=== PATIENT | male | born 1955 | race Caucasian/White ===

== ENCOUNTER 2018-12-18 08:10 | Inpatient (IN) | payer BC, OTHER ==
[2018-12-14 13:00] LABS: Basophils # (auto) 0 uL; Basophils % (auto) 0.6 % (0.0-2.0); Eosinophils # (auto) 0.1 uL; Eosinophils % (auto) 2.6 % (0.0-7.0); Hematocrit 35.4 % (41.0-53.0); Hemoglobin 11.9 g/dL (13.5-17.5); Lymphocytes # (auto) 0.7 uL; Lymphocytes % (auto) 21.6 % (10.0-50.0); Mean Corpuscular Hemoglobin 29.5 pg (28.0-32.0); Mean Corpuscular Hgb Conc. 33.5 g/dL (32.0-36.0); Mean Corpuscular Volume 88.1 fL (80.0-100.0); Monocytes # (auto) 0.2 uL; Monocytes % (auto) 5.8 % (0.0-12.0); Neutrophils # (auto) 2.1 uL; Neutrophils % (auto) 69.4 % (37.0-80.0); Nucleated Red Blood Cells % 0.2 %; Platelet Count (auto) 177 10^3/uL (140-450); Red Blood Cells 4.01 10^6/uL (4.5-5.90)
[2018-12-14 13:04] LABS: Urine Bacteria NONE SEEN /hpf (None Seen); Urine Blood TRACE /uL (Negative); Urine Specific Gravity 1.015 (1.001-1.035); Urine WBC 1 /hpf (0 - 3)
[2018-12-14 13:18] LABS: Partial Thromboplastin Time 34.1 sec (23.78-33.04); Prothrombin Time 10.7 sec (9.27-12.13)
[2018-12-14 13:53] LABS: Albumin 3.5 g/dL (3.4-5.0); Calcium 8.7 mg/dL (8.5-10.1)
[2018-12-14 13:56] LABS: BUN/Creatinine Ratio 16.3; Bilirubin, Total 0.3 mg/dL (0.2-1.0)
[~2018-12-18] VITALS: Ht 170.2 cm; Wt 83.0 kg
[~2018-12-18 08:10] MED LIST: AMLO5TAB13 PO; FOLI1TAB6 PO; HYDR-4296 PO; LISI40TA PO; METH2.5T3 PO; METO-158 PO
[2018-12-18] MEDS ORDERED: ceFAZolin 1GM/50ML 50 ML IV ONE ×2 (08:46→10:03)
[2018-12-18] MEDS ORDERED: MIDAZOLAM HCL 1MG/1ML-2 ML VIAL ONE ×3 (09:30→10:33)
[2018-12-18] MEDS ORDERED: LIDOCAINE 1% INJ PF 5ML AMP ONE (09:31)
[2018-12-18] MEDS ORDERED: LIDOCAINE W/ EPINEPHRINE 1% 20ML VIAL ONE (09:31)
[2018-12-18] MEDS ORDERED: ROPIVACAINE 0.5% (5MG/ML) 20ML AMPULE IJ ONE (09:31)
[2018-12-18] MEDS ORDERED: TETRACAINE 1% INJ 2 ML VIAL IJ ONE (10:14)
[2018-12-18] MEDS ORDERED: MORPHINE SULF(PF) 0.5MG/ML 10ML VIAL ONE (10:15)
[2018-12-18] MEDS ORDERED: PROPOFOL 10 MG/ML 20 ML IV ONE (10:41)
[2018-12-18] MEDS ORDERED: METOCLOPRAMIDE HCL 5MG/ml INJ 2ml VIAL ONE (10:53)
[2018-12-18] MEDS ORDERED: ePHEDrine SULFATE 50 MG/ML AMP ONE (10:55)
[2018-12-18] MEDS ORDERED: STERILE WATER 10 ML ONE (10:55)
[2018-12-18] MEDS ORDERED: fentaNYL CITRATE 100 MCG/2 ML VL ONE (10:56)
[2018-12-18] MEDS ORDERED: ROCURONIUM 10MG/ML 10ML VIAL IV ONE (11:10)
[2018-12-18] MEDS ORDERED: ePHEDrine SULFATE 50 MG/ML AMP IV PRN (11:15)
[2018-12-18] MEDS ORDERED: NALOXONE HCL 0.4 MG/ML VIAL IV PRN (11:15)
[2018-12-18] MEDS ORDERED: HYDROmorphone HCL 2 MG/ML VL IV PRN ×2 (11:15→14:15)
[2018-12-18] MEDS ORDERED: ONDANSETRON HCL 4 MG/2 ML VIAL IV ONE (11:15)
[2018-12-18] MEDS ORDERED: PROMETHAZINE HCL 25 MG/ML 1ML IV PRN (11:15)
[2018-12-18] MEDS ORDERED: KETOROLAC TROMETH 30 MG/ML 1ML VIAL ONE (12:06)
[2018-12-18] MEDS ORDERED: DEXAMETHASONE SOD PHOS 10MG/1ML VIAL INJ ONE (13:05)
[2018-12-18] MEDS: HYDROmorphone HCL 2 MG/ML VL IV PRN ×4 (13:45→15:18)
[2018-12-18] MEDS ORDERED: ONDANSETRON HCL 4 MG/2 ML VIAL IV PRN (14:15)
[2018-12-18] MEDS ORDERED: TEMAZEPAM 15 MG CAP PO PRN (14:15)
--- NOTE | 2018-12-18 15:33 | NUR ---
Report Received report from OR. Patient should be coming up to the floor soon.
--- NOTE | 2018-12-18 16:00 | NUR ---
MS admit from OR ERMELINDA LOPEZ admitted to tele/MS after SBAR received. Patient oriented to SABAS ALFARO RN primary RN, unit, room, bed, and unit policies regarding patient care and visiting hours. Patient weighed by bedscale and encouraged to call if they need something. All questions and concerns addressed, patient verbalized understanding.
[2018-12-18 17:05] VITALS: BP 151/85
[2018-12-18 17:13] VITALS: BP 151/85
[2018-12-18] MEDS: ceFAZolin 1GM/50ML 50 ML IV SCH ×2 (17:36→20:10)
[2018-12-18] MEDS: LACTATED RINGER'S 1,000 ML IV SCH (19:09)
--- NOTE | 2018-12-18 19:25 | NUR ---
Closing Shift Note Patient is resting in bed with family at bedside. Patient states there is pain 2/10 at this time. Patient is on SCDs. Patient's knee is wrapped in an venu bandage which is dry and intact. Will endorse care to the slot shift manager RN.
[2018-12-18] MEDS: HYDROcodone-ACET 10/325MG TAB PO PRN (20:08)
[2018-12-18] MEDS: SODIUM CHLOR 0.9% PF (SALINE LOCK) 10ML VIAL/SYR IV SCH (20:10)
[2018-12-18 22:00] VITALS: BP 154/90
[2018-12-18] MEDS: DOCUSATE SOD 100 MG CAP PO SCH (22:55)
[2018-12-18] MEDS: hydrALAZINE HCL 25 MG TAB PO SCH (22:56)
[2018-12-18] MEDS: METOPROLOL TARTRATE 50 MG TAB PO SCH (22:56)
[2018-12-18] MEDS: ACETAMINOPHEN 325 MG TAB PO PRN (22:57)
[2018-12-19] MEDS: ceFAZolin 1GM/50ML 50 ML IV SCH (03:32)
[2018-12-19 05:00] VITALS: BP 132/81
[2018-12-19] MEDS: SODIUM CHLOR 0.9% PF (SALINE LOCK) 10ML VIAL/SYR IV SCH ×3 (06:00→22:00)
[2018-12-19] MEDS: hydrALAZINE HCL 25 MG TAB PO SCH ×3 (06:44→22:44)
[2018-12-19] MEDS: HYDROcodone-ACET 10/325MG TAB PO PRN ×3 (06:48→19:56)
--- NOTE | 2018-12-19 07:30 | NUR ---
OPENING NOTE Assumed care of patient from NOC RN. Patient awake and alert with no S/S of distress/SOB or pain. Left knee dressing dry/intact. Instructed on POC and to call for assist PRN, verbalized understanding. Bed in lowest, locked position with side rails up x2. Fall precautions in place and call light within reach.. Will continue to monitor for changes Q1hr and PRN.
[2018-12-19 08:30] VITALS: BP 147/86
--- NOTE | 2018-12-19 09:40 | NUR ---
DIET LM for dietary regarding patient's request for celiac diet. Dietary called and spoke to patient, per patient there is not a specific celiac diet therefore patient will have to choose what he is and isn't able to eat.
--- NOTE | 2018-12-19 10:00 | NUR ---
CPM Supervisor Looping at bedside applying CPM.
[2018-12-19] MEDS: DOCUSATE SOD 100 MG CAP PO SCH ×2 (10:16→22:45)
[2018-12-19] MEDS: amLODIPine BESYLATE 5 MG TAB PO SCH (10:19)
[2018-12-19] MEDS: FOLIC ACID 1 MG TAB PO SCH (10:22)
[2018-12-19] MEDS: METOPROLOL TARTRATE 50 MG TAB PO SCH ×2 (10:22→22:00)
[2018-12-19] MEDS: ENOXAPARIN SOD 40 MG/0.4 ML SYRINGE SC SCH (10:25)
[2018-12-19] MEDS: LISINOPRIL 20 MG TAB PO SCH (10:25)
[2018-12-19] MEDS: LACTATED RINGER'S 1,000 ML IV SCH (10:30)
[2018-12-19 10:44] LABS: Hematocrit 30.2 % (41.0-53.0); Hemoglobin 10.3 g/dL (13.5-17.5)
[2018-12-19 10:54] LABS: BUN/Creatinine Ratio 16.3; Calcium 7.9 mg/dL (8.5-10.1); Potassium 3.9 mmol/L (3.5-5.1)
[2018-12-19 12:17] VITALS: BP 142/80
--- NOTE | 2018-12-19 14:22 | NUR ---
OUT OF BED Patient out of bed with PT. No S/S of distress noted.
[2018-12-19] MEDS: ACETAMINOPHEN 325 MG TAB PO PRN (15:38)
[2018-12-19 16:42] VITALS: BP 127/70
--- NOTE | 2018-12-19 19:30 | NUR ---
CLOSING NOTE Endorsed care of patient to NOC Veronica SALEH.
--- NOTE | 2018-12-19 19:40 | NUR ---
Opening Shift Note Assumed care of patient, awake and alert, off of CPM machine on scds at this time. No S/S of distress/SOB . Instructed on POC and to call for assistance PRN, will continue to monitor for changes Q1hr and PRN. Call light within reach
[2018-12-19 20:00] VITALS: BP 121/63
--- NOTE | 2018-12-19 20:15 | NUR ---
Rounds Patient awake and alert. No S/S of distress/SOB, pt c/o 6/10 pain, medicated as ordered. Will continue to monitor changes q1hr and PRN.
[2018-12-19 21:24] VITALS: BP 121/63
--- NOTE | 2018-12-20 01:30 | NUR ---
Ambulation Pt ambulated to restroom with use of walker and min assistance. Pt assisted back to bed, patient tolerated well
[2018-12-20] MEDS: HYDROcodone-ACET 10/325MG TAB PO PRN ×4 (03:21→19:55)
--- NOTE | 2018-12-20 03:21 | NUR ---
Pain Management Patient medicated for severe pain after ambulation, patient declined iv medication, states he " does not like how it made me feel last time", pt medicated for pain with norco instead. Will continue to monitor. Scd machine from left leg removed at this time due to pain, call light within reach, will continue to monitor pain relief.
[2018-12-20] MEDS: LACTATED RINGER'S 1,000 ML IV SCH (05:03)
[2018-12-20 05:32] VITALS: BP 146/72
[2018-12-20] MEDS: SODIUM CHLOR 0.9% PF (SALINE LOCK) 10ML VIAL/SYR IV SCH ×3 (06:11→21:50)
[2018-12-20] MEDS: hydrALAZINE HCL 25 MG TAB PO SCH ×3 (06:11→21:50)
[2018-12-20] MEDS: ACETAMINOPHEN 325 MG TAB PO PRN (06:11)
--- NOTE | 2018-12-20 06:11 | NUR ---
Pain Management Patient medicated for 5/10 pain knee at at this time. Call light within reach
--- NOTE | 2018-12-20 07:04 | NUR ---
Opening Shift Note Assumed care of patient, awake and alert. No S/S of distress/SOB or pain. Instructed on POC and to call for assist PRN, will continue to monitor for changes Q1hr and PRN.
--- NOTE | 2018-12-20 07:30 | NUR ---
Endorsed care to Delia SALEH Patient stable, resting no complaints of pain at this time. Call light within reach, side rails up
[2018-12-20 07:39] LABS: Hematocrit 27.2 % (41.0-53.0); Hemoglobin 9.1 g/dL (13.5-17.5)
[2018-12-20 09:00] VITALS: BP 133/70
[2018-12-20] MEDS: FOLIC ACID 1 MG TAB PO SCH (10:00)
[2018-12-20] MEDS: amLODIPine BESYLATE 5 MG TAB PO SCH (10:21)
[2018-12-20] MEDS: DOCUSATE SOD 100 MG CAP PO SCH ×2 (10:21→21:50)
[2018-12-20] MEDS: LISINOPRIL 20 MG TAB PO SCH (10:22)
[2018-12-20] MEDS: ENOXAPARIN SOD 40 MG/0.4 ML SYRINGE SC SCH (10:22)
[2018-12-20] MEDS: METOPROLOL TARTRATE 50 MG TAB PO SCH ×2 (10:25→21:51)
[2018-12-20 13:00] VITALS: BP 136/79
[2018-12-20 17:00] VITALS: BP 139/77
--- NOTE | 2018-12-20 19:26 | NUR ---
Change of shift given to night supervisor RN. No distress noted.
--- NOTE | 2018-12-20 19:55 | NUR ---
RECEIVED PATIENT FROM DAY SHIFT RN. PATIENT RESTING IN BED. NO S/S OF DISTRESS NOTED. FAMILY AT BEDSIDE. PREMEDICATION PATIENT FOR THE PAIN ORDERED FOR PAIN @ 8/10, WILL WAIT FOR 30 MINS AND COME BACK TO PUT PATIENT ON CPM MACHINE. PATIENT VERBALIZED UNDERSTANDING. POC INSTRUCTED AND ENCOURAGED PATIENT TO CALL FOR REHABILITATION SERVICES DIRECTOR IF NEEDED. BED IN LOWEST POSITION WITH SIDE RAILS UP X 2. CALL LOPES WITHIN REACH. ALARM ON. CONTINUE TO MONITOR FOR CHANGES Q1H AND PRN.
--- NOTE | 2018-12-20 20:35 | NUR ---
PUT PATIENT BACK TO CPM MACHINE, PATIENT TOLERATED WELL. CONTINUE TO MONITOR.
[2018-12-20 22:00] VITALS: BP 148/77
--- NOTE | 2018-12-20 22:03 | NUR ---
PATIENT REQUESTED TO BE OFF CPM FOR SLEEP. CPM MOVED OUT. PATIENT TOLERATED WELL. CONTINUE TO MONITOR.
--- NOTE | 2018-12-21 02:52 | NUR ---
PATIENT SLEEPING. NO S/S OF DISTRESS NOTED. BED IN LOWEST POSITION. ALARM ON. CALL LOPES WITHIN REACH. CONTINUE CARE.
[2018-12-21 05:25] VITALS: BP 142/84
[2018-12-21] MEDS: SODIUM CHLOR 0.9% PF (SALINE LOCK) 10ML VIAL/SYR IV SCH ×2 (06:12→13:22)
[2018-12-21] MEDS: hydrALAZINE HCL 25 MG TAB PO SCH ×2 (06:12→13:23)
[2018-12-21] MEDS: HYDROcodone-ACET 10/325MG TAB PO PRN ×2 (06:43→13:23)
--- NOTE | 2018-12-21 06:43 | NUR ---
PER PATIENT REQUEST, PRE-MEDICATED PATIENT NORCO FOR CPM. CONTINUE TO MONITOR.
--- NOTE | 2018-12-21 07:45 | NUR ---
Opening Shift Note Received report from Adriana SALEH. Assumed care of patient, awake and alert. No S/S of distress/SOB. Reported tolerable pain on left leg. Called PT to place the CPM on left leg. Noted dry & intact dressing on incision site of left hip. CPM now ongoing. Instructed on POC and to call for assist PRN, will continue to monitor for changes Q1hr and PRN.
[2018-12-21 08:00] VITALS: BP 122/71
[2018-12-21 08:32] LABS: Hematocrit 28.5 % (41.0-53.0); Hemoglobin 9.7 g/dL (13.5-17.5)
[2018-12-21 08:51] LABS: BUN/Creatinine Ratio 16.7; Potassium 3.6 mmol/L (3.5-5.1)
[2018-12-21 09:02] VITALS: BP 122/71
[2018-12-21] MEDS: ENOXAPARIN SOD 40 MG/0.4 ML SYRINGE SC SCH (10:05)
[2018-12-21] MEDS: LISINOPRIL 20 MG TAB PO SCH (10:05)
[2018-12-21] MEDS: DOCUSATE SOD 100 MG CAP PO SCH (10:05)
[2018-12-21] MEDS: amLODIPine BESYLATE 5 MG TAB PO SCH (10:06)
[2018-12-21] MEDS: METOPROLOL TARTRATE 50 MG TAB PO SCH (10:06)
--- NOTE | 2018-12-21 10:11 | NUR ---
ORDER NAD CLINICALS FAXED TO [facility] REQUESTING HOME HEALTH, FFW, BEDSIDE COMMODE, AND CPM.
[2018-12-21] MEDS ORDERED: DOCU100C8 PO (10:53)
[2018-12-21 12:22] VITALS: BP 134/78
--- NOTE | 2018-12-21 13:47 | NUR ---
PER CHERY HOLBROOK [facility] PATIENT HAS BEEN SET UP WITH [facility] [phone] WITH START OF CARE 24 TO 48 HOURS AFTER DISCHARGE. DME WILL BE PROVIDED THRU [facility] [phone]
--- NOTE | 2018-12-21 14:00 | NUR ---
SPOKE WITH [facility], SAID THAT PATIENT IS NOW SAFE FOR DC. EQUIPMENT-- FWW, BS COMMODE, & CPM WILL ALL BE DELIVERED TO PATIENT'S HOME. PATIENT MADE AWARE AND VERBALIZED UNDERSTANDING.
[2018-12-21 16:43] VITALS: BP 130/76
--- NOTE | 2018-12-21 17:00 | NUR ---
ALL AT BEDSIDE, INSTRUCTING PATIENT FOR CPM.
--- NOTE | 2018-12-21 17:58 | NUR ---
Discharge instructions given as ordered. Encourage to follow up with PMD as instructed. All questions and concerns addressed. Patient verbalized understanding. IV removed with catheter intact, pressure dressing applied. CPM with patient. Patient taken to vehicle via wheelchair with all personal belongings, accompanied by staff and family member. No distress noted at time of departure.
== END 2018-12-21 17:55 | disposition home health service (06) | DRG 470 ==
LOC: SUR 08:10 → WEST WING 16:12
PROVIDERS: ADMIT Orthopaedic Surgery; ATTEND Internal Medicine
PROC: 0MBP0ZZ Excision of Left Knee Bursa and Ligament, Open Approach (ICD-10-PCS; 2018-12-18)
PROC: 0KNR0ZZ Release Left Upper Leg Muscle, Open Approach (ICD-10-PCS; 2018-12-18)
PROC: 0SRD0J9 Replacement of Left Knee Joint with Synthetic Substitute, Cemented, Open Approach (ICD-10-PCS; principal; 2018-12-18 10:27)
DX: M17.12 Unilateral primary osteoarthritis, left knee (principal); I12.9 Hypertensive chronic kidney disease with stage 1 through stage 4 chronic kidney disease, or unspecified chronic kidney disease; K90.0 Celiac disease; N18.3 Chronic kidney disease, stage 3 (moderate); M06.9 Rheumatoid arthritis, unspecified; D63.8 Anemia in other chronic diseases classified elsewhere; G47.33 Obstructive sleep apnea (adult) (pediatric); Z79.899 Other long term (current) drug therapy
CPT/HCPCS: 36415; 73560; 80048; 80053; 81001; 85014; 85018; 85025; 85610; 85730; 86850; 86900; 86901; G0378; J0690; J1100; J1885; J2250; J2405; J2704

== ENCOUNTER 2025-09-06 14:14 | Inpatient (IN) | payer MEDICARE, BC ==
[~2025-09-06] VITALS: Ht 170.2 cm; Wt 104.1 kg
[~2025-09-06 14:14] MED LIST changes: +AMLO1TAB22 PO; -AMLO5TAB13 PO; +DOCU-265 PO; +FOLI-119 PO; -FOLI1TAB6 PO; -HYDR-4296 PO; +HYDR25TA88 PO; -LISI40TA PO; +LISI40TA16 PO; +METH2.5T PO; -METH2.5T3 PO
[2025-09-06 14:41] LABS: Hematocrit 44.6 % (41.0-53.0); Hemoglobin 14.8 g/dL (13.5-17.5); Mean Corpuscular Hemoglobin 32.0 pg (28.0-32.0); Mean Corpuscular Volume 96.5 fL (80.0-100.0); Nucleated Red Blood Cells % 0.1 %
[2025-09-06 14:58] LABS: Anion Gap 9 (5-15); Calcium 8.9 mg/dL (8.7-10.4); Carbon Dioxide 22 mmol/L (20-31)
[2025-09-06 15:03] LABS: BUN/Creatinine Ratio 16.2 (10.0-20.0); Glucose 85 mg/dL (74-106)
[2025-09-06 15:10] LABS: Blood Urea Nitrogen 40 mg/dL (9-23); Chloride 113 mmol/L (98-107); Potassium 5.1 mmol/L (3.5-5.1); Sodium 144 mmol/L (136-145)
[2025-09-06 15:17] VITALS: O2SAT 100
--- NOTE | 2025-09-06 15:54 | DVH ---
CHEST RADIOGRAPH Indication: weakness Technique: Single frontal view of the chest was obtained Comparison: None FINDINGS: Lines and Tubes: None Lungs: Scarring or linear atelectasis right base are no prior studies for comparison. Pleura: No effusion. No pneumothorax. Cardiomediastinal contours: Unremarkable Bones: No acute osseous abnormality. IMPRESSION: 1. Scarring or atelectasis right base. No prior studies for comparison.
--- NOTE | 2025-09-06 18:06 | ED.PDOC ---
History of Present Illness HPI Comments 69-year-old male is brought in by ambulance for chief complaint of syncope. Patient reports passing out, earlier, today. He states on having cold sweats prior to passing out in addition to having diarrhea for one week. Denies any chest pain, shortness a breath, or further acute symptoms. Chief Complaint: Dizziness Time Seen by MD: 14:10 Reviewed Notes: Nurses Notes, Law Firm Receptionist Notes, Medications, Allergies Allergies: Coded Allergies: Aliskiren (Verified Allergy, Unknown, 09/06/25) Amoxicillin (Verified Allergy, Unknown, 09/06/25) Hydralazine (Verified Allergy, Unknown, 09/06/25) Penicillins (Verified Allergy, Unknown, 09/06/25) Rosuvastatin (Verified Allergy, Unknown, 09/06/25) Home Meds Active Scripts Docusate Sodium (Docusate Sodium) 100 Mg Cap, 100 MG PO BID for 30 Days, CAP Prov:NEMESIO HEATH MD 12/21/18 Reported Medications Folic Acid (Folic Acid) 1 Mg Tab, 1 MG PO DAILY for 30 Days, MG 12/14/18 Methotrexate (Methotrexate) 2.5 Mg Tab, 4 TAB PO QWEEKLY, #16 TAB 1 Refill 12/14/18 Hydralazine Hcl (Hydralazine Hcl) 25 Mg Tab, 25 MG PO TID for 30 Days, MG 12/14/18 Metoprolol Tartrate (Metoprolol Tartrate) 50 Mg Tab, 50 MG PO BID for 30 Days, MG 12/14/18 Lisinopril (Lisinopril) 40 Mg Tab, 40 MG PO DAILY for 30 Days, MG 12/14/18 Amlodipine Besylate (Amlodipine Besylate) 5 Mg Tab, 5 MG PO DAILY for 30 Days, MG 12/14/18 Information Source: Patient, Emergency Med Personnel Mode of Arrival: EMS Past Medical History PAST MEDICAL HISTORY: Denies Surgical History: Denies all surgeries Family History Family History: Unknown Social History Smoker: Non-Smoker Alcohol: Denies ETOH Use Drugs: Denies Drug Use Lives In: Home All Other Systems: Reviewed and Negative (Comprehensive review of systems are negative unless otherwise stated in HPI) Physical Exam General Appearance: No Apparent Distress, Obese HEENT: Normal ENT Inspection, Pharynx Normal, TMs Normal Neck: Full Range of Motion, Non-Tender, Normal, Normal Inspection Respiratory: Chest Non-Tender, Lungs Clear, No Accessory Muscle Use, No Respiratory Distress, Normal Breath Sounds Cardiovascular: Irregular (Irregular heartbeat), No Edema, No JVD, No Murmur, No Gallop, Normal Peripheral Pulses Breast Exam: Deferred Gastrointestinal: No Organomegaly, Non Tender, No Pulsatile Mass, Normal Bowel Sounds, Soft Genitalia: Deferred Pelvic: Deferred Rectal: Deferred Extremities: No calf tenderness, Normal capillary refill, Normal inspection, Normal range of motion, Non-tender, No pedal edema Musculoskeletal : Apperance: Normal Neurologic: Alert, automatic packer operator II-XII nml as Tested, No Motor Deficits, Normal Affect, Normal Mood, No Sensory Deficits Cerebellar Function: Normal Reflexes: Normal Skin: Dry, Pallor, Warm Lymphatic: No Adenopathy Was a procedure done? Was a procedure done?: No Differential Dx Considerations may include: Vasovagal response, dehydration, electrolyte imbalances, viral, among others X-Ray, Labs, Meds, VS Vital Signs Date Time Temp Pulse Resp B/P (MAP) Pulse Ox O2 Delivery O2 Flow Rate FiO2 09/06/25 19:00 86 14 131/90 (104) 94 09/06/25 17:23 85 12 123/91 (102) 96 09/06/25 15:36 91 09/06/25 15:17 97.8 87 20 130/90 (103) 97 97.8 09/06/25 15:17 100 Room Air* 0 21 09/06/25 14:39 98.3 81 18 110/63 96 98.3 09/06/25 14:27 84 Lab Test 09/06/25 15:48 09/06/25 14:25 Range/Units Troponin I High Sensitivity < 3 L < 3 L </=54 ng/L White Blood Count 4.9 4.4-10.8 10^3/uL Red Blood Count 4.62 4.5-5.90 10^6/uL Hemoglobin 14.8 13.5-17.5 g/dL Hematocrit 44.6 41.0-53.0 % Mean Corpuscular Volume 96.5 80.0-100.0 fL Mean Corpuscular Hemoglobin 32.0 28.0-32.0 pg Mean Corpuscular Hemoglobin Concent 33.2 32.0-36.0 g/dL Red Cell Distribution Width 13.8 11.8-14.3 % Platelet Count 124 L 140-450 10^3/uL Mean Platelet Volume 9.8 6.9-10.8 fL Neutrophils (%) (Auto) 61.5 37.0-80.0 % Lymphocytes (%) (Auto) 22.1 10.0-50.0 % Monocytes (%) (Auto) 12.9 H 0.0-12.0 % Eosinophils (%) (Auto) 2.3 0.0-7.0 % Basophils (%) (Auto) 1.2 0.0-2.0 % Neutrophils # (Auto) 3.0 1.6-8.6 10 ^3/uL Lymphocytes # (Auto) 1.1 0.4-5.4 10 ^3/uL Monocytes # (Auto) 0.6 0-1.3 10 ^3/uL Eosinophils # (Auto) 0.1 0-0.8 10 ^3/uL Basophils # (Auto) 0.1 0-0.2 10 ^3/uL Nucleated Red Blood Cells 0.1 % Sodium Level 144 136-145 mmol/L Potassium Level 5.1 3.5-5.1 mmol/L Chloride Level 113 H 98-107 mmol/L Carbon Dioxide Level 22 20-31 mmol/L Anion Gap 9 5-15 Blood Urea Nitrogen 40 H 9-23 mg/dL Creatinine 2.47 H 0.700-1.30 mg/dL Glomerular Filtration Rate Calc 27 >90 mL/min BUN/Creatinine Ratio 16.2 10.0-20.0 Serum Glucose 85 74-106 mg/dL Calcium Level 8.9 8.7-10.4 mg/dL B-Type Natriuretic Peptide 39.94 0-100 pg/mL Current Medications Medications (Trade) Dose Ordered Sig/Lewis Route Start Time Stop Time Status Last Admin Zirconium Oxide (Lokelma) 10 gm ONCE ONCE PO 09/06/25 18:45 09/06/25 19:20 DC 09/06/25 19:[address] [address] Ph: [phone] DIAGNOSTIC IMAGING Diagnostic Imaging Report : [id number] Signed PATIENT: ERMELINDA LOPEZ ACCT: [id number] UNIT: [id number] : 1955 LOC: ER ROOM / BED: / AGE / SEX: 69 / M ADM STATUS: REG ER SERVICE 1508 ORDERING PHYSICIAN: MARCI KIRBY MD PROCEDURE(s): CXRP - CHEST PORTABLE REASON: weakness ORDER NUMBER(s): [id number], ACCESSION NUMBER(s): [id number] CHEST RADIOGRAPH Indication: weakness Technique: Single frontal view of the chest was obtained Comparison: None FINDINGS: Lines and Tubes: None Lungs: Scarring or linear atelectasis right base are no prior studies for comparison. Pleura: No effusion. No pneumothorax. Cardiomediastinal contours: Unremarkable Bones: No acute osseous abnormality. IMPRESSION: 1. Scarring or atelectasis right base. No prior studies for comparison. ATED BY: SHAZIA TALAVERA Jr., DO DICTATED DATE/TIME: 09/06/251550 SIGNED BY: SHAZIA TALAVERA Jr., SIGNED DATE/TIME: 09/06/251550 CC: Time of 1ST Reevaluation: 14:40 Reevaluation 1ST: Unchanged Patient Education/Counseling: Diagnosis, Treatment Family Education/Counseling: Diagnosis, Treatment Additional Information Additional historians: None Previous medical visits reviewed: None Additional imaging and studies ordered and reviewed: CT head without contrast, chest x-ray, EKG Labs ordered and reviewed: BNP, CBC, BMP, troponin, UA, SEPSIS Sepsis Screen Date sepsis recognized/suspect: Sep 06, 2025 Time Sepsis recognized/suspect: 1517 Recent Procedure: No On Antibiotic Therapy: No Respiratory Rate >20: No Heart Rate >90: No Temp<36 C (96.8 F) or >38.3 C: No SBP <90 or MAP <65 mmHG: No New Acute Mental Status Change: No Is the patient on CPAP, BIPAP,: No Physician Orders Urinalysis (09/06/25 14:18) Chest Portable (09/06/25 15:08) Electrocardigram (09/06/25 14:18) Electrocardigram (09/06/25 15:18) Electrocardigram (09/06/25 17:18) Head Without Contrast (09/06/25 17:01) *Dr. Mueller [facility] (09/06/25 18:37) Metoprolol Tartrate Tablet (Lopressor Ta (09/06/25 22:00) Allergies (09/06/25 18:37) Code Status (09/06/25 18:37) Sodium Chloride Lock (Saline Lock Ns) (09/06/25 22:00) Oxygen Per Hour (09/06/25 18:37) Hydrocodone-Acet 5/325mg Tab (Gratis 5/32 (09/06/25 18:45) Ondansetron Hcl (Zofran) (09/06/25 18:45) Docusate Sodium Capsule (Colace Capsule) (09/06/25 18:45) Fall Risk Precautions In Place QSHIFT (09/06/25 18:37) Complete Blood Count (09/07/25 04:00) Comprehensive Metabolic Panel (09/07/25 04:00) Cardiac Diet-2gna,Lofat,Lochol (09/07/25 Breakfast) Condition: Serious (09/06/25 18:37) Acetaminophen Tablet (Tylenol Tablet) (09/06/25 18:45) Maintain Bed Rest (09/06/25 18:37) Sequential Compression Device (09/06/25 ) Amlodipine Tablet (Norvasc Tablet) (09/07/25 10:00) Folic Acid Tablet (09/07/25 10:00) Vital Signs Date Time Temp Pulse Resp B/P (MAP) Pulse Ox O2 Delivery O2 Flow Rate FiO2 09/06/25 19:00 86 14 131/90 (104) 94 09/06/25 17:23 85 12 123/91 (102) 96 09/06/25 15:36 91 09/06/25 15:17 97.8 87 20 130/90 (103) 97 97.8 09/06/25 15:17 100 Room Air* 0 21 09/06/25 14:39 98.3 81 18 110/63 96 98.3 09/06/25 14:27 84 Laboratory Tests Test 09/06/25 14:25 White Blood Count 4.9 10^3/uL (4.4-10.8) Medications Medications Dose Ordered Sig/Lewis Route Start Time Stop Time Status Last Admin Dose Admin Zirconium Oxide 10 gm ONCE ONCE PO 09/06/25 18:45 09/06/25 19:20 DC 09/06/25 19:25 Departure 1 Departure Time of Disposition: 21:09 (Patient presented with syncope today and should be admitted. Data: 1. I ordered and reviewed the result of at least 3 labs including a CBC, BMP, and troponin. 2. I independently interpreted the following tests: EKG which shows a sinus arrhythmia and a chest x-ray which shows benign chest and a CT head which shows benign brain.Risk:This patient has a high risk of morbidity due to further diagnostic testing or treatment and may suffer from an acute cardiac, neurologic, or infectious disorder. Rationale: Patient should be admitted to the hospital for further management.) Impression: Primary Impression: Syncope and collapse Additional Impression: Generalized weakness Disposition: 09 ADMITTED INPATIENT Admit to: Tele Condition: Guarded Critical Care Note Critical Care Time?: Yes Critical care comment: Syncope and collapse Authorized and Performed by: Marci Kirby MD Total critical care time: Approximately 39 minutes Due to a high probability of clinically significant, life threatening deterioration, the patient required my highest level of preparedness to intervene emergently and I personally spent this critical care time directly and personally managing the patient. This critical care time included obtaining a history; examining the patient; pulse oximetry; ordering and review of studies; arranging urgent treatment with development of a management plan; evaluation of patient's response to treatment; frequent reassessment; and, discussions with other providers. This critical care time was performed to assess and manage the high probability of imminent, life-threatening deterioration that could result in multi-organ failure. It was exclusive of separately billable procedures and treating other patients and teaching time. Please see my other sections and the rest of the note for further information on patient assessment and treatment. Stability Stability form required: No Heart Score Heart Score: Heart Score Response (Comments) Value History N/A 0 EKG N/A 0 Age N/A 0 Risk Factors N/A 0 Troponin N/A 0 Total 0 I personally scribed for MARCI KIRBY MD ([email or web address]) on 09/06/25 at 18:06. Electronically submitted by Evaristo Melchor ([email or web address]). MARCI KIRBY MD Sep 06, 2025 18:06
--- NOTE | 2025-09-06 18:32 | DVH ---
CLINICAL HISTORY: syncope TECHNIQUE: Helical imaging carried out from skull base to vertex without intravenous contrast. This exam was performed according to our departmental dose optimization program. Up-to-date CT equipment and radiation dose reduction techniques are utilized as appropriate. CTDIVol: 52.5 mGy DLP: 863.9 mGy-cm WID: COMPARISON: None FINDINGS: Cerebral volume loss with concordant prominence of the subarachnoid spaces and ventricles. Mild patchy low attenuation in the cerebral white matter consistent with nonspecific white matter disease. There is no midline shift or mass effect. The joe white matter interfaces are maintained. The basal cisterns are patent. There is no evidence of acute intracranial hemorrhage or extra-axial fluid collection. The mastoid air cells and visualized paranasal sinuses are well-aerated. IMPRESSION: 1. No acute intracranial abnormality. 2. Mild cerebral volume loss and mild chronic microvascular ischemic change.
[2025-09-06] MEDS ORDERED: HYDROcodone-ACET 5/325MG TAB PO PRN (18:45)
[2025-09-06] MEDS ORDERED: DOCUSATE SOD 100 MG CAP PO PRN (18:45)
[2025-09-06] MEDS ORDERED: ONDANSETRON HCL 4 MG/2 ML VIAL IV PRN (18:45)
[2025-09-06] MEDS ORDERED: ACETAMINOPHEN 325 MG TAB PO PRN (18:45)
[2025-09-06] MEDS: SODIUM ZIRCONIUM CYCL 10 GM PAK PO ONE (19:25)
[2025-09-06 19:40] VITALS: PULSE 76; O2SAT 100
--- NOTE | 2025-09-06 19:52 | DVHHP2 ---
History of Present Illness Reason for Visit: Dizziness History of Present Illness The patient is a 69-year-old male with past medical history of hypertension and atrial fibrillation presented to [facility] ED for evaluation of syncopal episode. Patient reports that he passed out earlier today, having diarrhea for months, associated generalized weakness, dizziness, getting worse that prompted this visit. Patient reports that he has upcoming appointment with gastro group for colonoscopy. Patient was seen and evaluated in the ED, laboratory data shows WBC 4.9, platelets 124, sodium 144, potassium 5.1, BUN 40, creatinine 2.47, glucose 85, calcium 8.9, BNP 39.94, troponin < 3, blood pressure 123/91, heart rate 85, temperature 97.8 F, O2 saturation 96% on room air. Head CT revealing mild cerebral volume loss and mild chronic microvascular ischemic change, no acute intracranial abnormality. Please see medication orders section in the computer. On my assessment, patient denies chest pain, no headache, dizziness, diaphoresis, shortness of breaths, no nausea, vomiting, fever, no chills. Patient was admitted for further evaluation and medical management. Past Medical History AFib, HTN, Past Surgical History Denies all surgeries Family History Reviewed, noncontributory to the management of this case. Past Social History The patient lives at home, denies smoking, alcohol or illicit drugs abuse. Review of Systems Constitutional: Yes: Weakness; No: Fever, Chills, Sweats, Malaise, Other Eyes: No: Pain, Vision change, Conjunctivae inflammation, Eyelid inflammation, Other, Redness ENT: No: Ear pain, Ear discharge, Nose pain, Nose discharge, Nose congestion, Mouth pain, Mouth swelling, Throat pain, Throat swelling, Other Respiratory: No: Cough, Dry, Shortness of breath, SOB with excertion, Wheezing, Hemoptysis, Pleuritic Pain, Sputum, Wheezing, Other Cardiovascular: No: Chest Pain, Palpitations, Orthopnea, Paroxysmal Noc. Dyspnea, Edema, Lt Headedness, Other Gastrointestinal: Diarrhea; No: Nausea, Vomiting, Abdominal Pain, Constipation, Melena, Hematochezia, Other Genitourinary: No Dysuria, No Frequency, No Incontinence, No Hematuria, No Retention, No Other Musculoskeletal: No: other, neck pain, shoulder pain, arm pain, back pain, hand pain, leg pain, foot pain Skin: No: Rash, Lesions, Jaundice, Bruising, Other Neurological: Other (Dizziness); No: Weakness, Numbness, Incoordination, Change in speech, Confusion, Seizures Allergies: Coded Allergies: Aliskiren (Verified Allergy, Unknown, 09/06/25) Amoxicillin (Verified Allergy, Unknown, 09/06/25) Hydralazine (Verified Allergy, Unknown, 09/06/25) Penicillins (Verified Allergy, Unknown, 09/06/25) Rosuvastatin (Verified Allergy, Unknown, 09/06/25) Medications Current Medications Medications Dose Ordered Sig/Lewis Route Start Time Stop Time Status Last Admin Dose Admin Metoprolol Tartrate 25 mg BID PO 09/06/25 22:00 Amlodipine Besylate 5 mg DAILY PO 09/07/25 10:00 Folic Acid 1 mg DAILY PO 09/07/25 10:00 Sodium Chloride 10 ml Q8HR IV 09/06/25 22:00 Acetaminophen/ Hydrocodone Bitart 1 tab Q4HP PRN PO 09/06/25 18:45 Ondansetron HCl 4 mg Q4HP PRN IV 09/06/25 18:45 Docusate Sodium 100 mg BIDPRN PRN PO 09/06/25 18:45 Acetaminophen 650 mg Q6HP PRN PO 09/06/25 18:45 Exam Vital Signs Vital Signs Date Time Temp Pulse Resp B/P (MAP) Pulse Ox O2 Delivery O2 Flow Rate FiO2 09/06/25 19:00 86 14 131/90 (104) 94 09/06/25 15:17 97.8 97.8 09/06/25 15:17 Room Air* 0 21 General Appearance: Alert, Oriented X3, Cooperative, No acute distress HEENT: Atraumatic, PERRLA, EOMI, Mucous membr. moist/pink Respiratory: Normal air movement Cardiovascular: Regular rate, Normal S1, Normal S2, No murmurs Abdominal: Normal bowel sounds, Soft, No tenderness, No hepatospenomegaly, No masses Extremities: No clubbing, No cyanosis, No edema, Normal pulses, No tenderness/swelling Skin: No rashes, No significant lesion Neuro: Normal speech, Normal tone, Sensation intact, Cranial nerves 3-12 NL, Reflexes 2+, Other (Generalized weakness) Psych/Mental Status: Mental status NL, Mood NL Labs/Xrays Labs Test 09/06/25 15:48 09/06/25 14:25 Range/Units Troponin I High Sensitivity < 3 L </=54 ng/L White Blood Count 4.9 4.4-10.8 10^3/uL Red Blood Count 4.62 4.5-5.90 10^6/uL Hemoglobin 14.8 13.5-17.5 g/dL Hematocrit 44.6 41.0-53.0 % Mean Corpuscular Volume 96.5 80.0-100.0 fL Mean Corpuscular Hemoglobin 32.0 28.0-32.0 pg Mean Corpuscular Hemoglobin Concent 33.2 32.0-36.0 g/dL Red Cell Distribution Width 13.8 11.8-14.3 % Platelet Count 124 L 140-450 10^3/uL Mean Platelet Volume 9.8 6.9-10.8 fL Neutrophils (%) (Auto) 61.5 37.0-80.0 % Lymphocytes (%) (Auto) 22.1 10.0-50.0 % Monocytes (%) (Auto) 12.9 H 0.0-12.0 % Eosinophils (%) (Auto) 2.3 0.0-7.0 % Basophils (%) (Auto) 1.2 0.0-2.0 % Neutrophils # (Auto) 3.0 1.6-8.6 10 ^3/uL Lymphocytes # (Auto) 1.1 0.4-5.4 10 ^3/uL Monocytes # (Auto) 0.6 0-1.3 10 ^3/uL Eosinophils # (Auto) 0.1 0-0.8 10 ^3/uL Basophils # (Auto) 0.1 0-0.2 10 ^3/uL Nucleated Red Blood Cells 0.1 % Sodium Level 144 136-145 mmol/L Potassium Level 5.1 3.5-5.1 mmol/L Chloride Level 113 H 98-107 mmol/L Carbon Dioxide Level 22 20-31 mmol/L Anion Gap 9 5-15 Blood Urea Nitrogen 40 H 9-23 mg/dL Creatinine 2.47 H 0.700-1.30 mg/dL Glomerular Filtration Rate Calc 27 >90 mL/min BUN/Creatinine Ratio 16.2 10.0-20.0 Serum Glucose 85 74-106 mg/dL Calcium Level 8.9 8.7-10.4 mg/dL B-Type Natriuretic Peptide 39.94 0-100 pg/mL PATIENT: ERMELINDA LOPEZ ACCT: [id number] UNIT: [id number] : 1955 LOC: ER ROOM / BED: / AGE / SEX: 69 / M ADM STATUS: REG ER SERVICE 1701 ORDERING PHYSICIAN: MARCI KIRBY MD PROCEDURE(s): HWOCT - HEAD WITHOUT CONTRAST REASON: syncope ORDER NUMBER(s): [id number], ACCESSION NUMBER(s): [id number] CLINICAL HISTORY: syncope TECHNIQUE: Helical imaging carried out from skull base to vertex without intravenous contrast. This exam was performed according to our departmental dose optimization program. Up-to-date CT equipment and radiation dose reduction techniques are utilized as appropriate. CTDIVol: 52.5 mGy DLP: 863.9 mGy-cm WID: COMPARISON: None FINDINGS: Cerebral volume loss with concordant prominence of the subarachnoid spaces and ventricles. Mild patchy low attenuation in the cerebral white matter consistent with nonspecific white matter disease. There is no midline shift or mass effect. The joe white matter interfaces are maintained. The basal cisterns are patent. There is no evidence of acute intracranial hemorrhage or extra-axial fluid collection. The mastoid air cells and visualized paranasal sinuses are well-aerated. IMPRESSION: 1. No acute intracranial abnormality. 2. Mild cerebral volume loss and mild chronic microvascular ischemic change. ORDERING PHYSICIAN: MARCI KIRBY MD PROCEDURE(s): CXRP - CHEST PORTABLE REASON: weakness ORDER NUMBER(s): [id number], ACCESSION NUMBER(s): [id number] CHEST RADIOGRAPH Indication: weakness Technique: Single frontal view of the chest was obtained Comparison: None FINDINGS: Lines and Tubes: None Lungs: Scarring or linear atelectasis right base are no prior studies for comparison. Pleura: No effusion. No pneumothorax. Cardiomediastinal contours: Unremarkable Bones: No acute osseous abnormality. IMPRESSION: 1. Scarring or atelectasis right base. No prior studies for comparison. SEPSIS Sepsis Screen Date sepsis recognized/suspect: Sep 06, 2025 Time Sepsis recognized/suspect: 1516 Recent Procedure: No On Antibiotic Therapy: No Respiratory Rate >20: No Heart Rate >90: No Temp<36 C (96.8 F) or >38.3 C: No SBP <90 or MAP <65 mmHG: No New Acute Mental Status Change: No Is the patient on CPAP, BIPAP,: No Physician Orders Urinalysis (09/06/25 14:18) Chest Portable (09/06/25 15:08) Electrocardigram (09/06/25 14:18) Electrocardigram (09/06/25 15:18) Electrocardigram (09/06/25 17:18) Head Without Contrast (09/06/25 17:01) *[facility] (09/06/25 18:37) Metoprolol Tartrate Tablet (Lopressor Ta (09/06/25 22:00) Allergies (09/06/25 18:37) Code Status (09/06/25 18:37) Sodium Chloride Lock (Saline Lock Ns) (09/06/25 22:00) Oxygen Per Hour (09/06/25 18:37) Hydrocodone-Acet 5/325mg Tab ([place] 5/32 (09/06/25 18:45) Ondansetron Hcl (Zofran) (09/06/25 18:45) Docusate Sodium Capsule (Colace Capsule) (09/06/25 18:45) Fall Risk Precautions In Place QSHIFT (09/06/25 18:37) Complete Blood Count (09/07/25 04:00) Comprehensive Metabolic Panel (09/07/25 04:00) Cardiac Diet-2gna,Lofat,Lochol (09/07/25 Breakfast) Condition: Serious (09/06/25 18:37) Acetaminophen Tablet (Tylenol Tablet) (09/06/25 18:45) Maintain Bed Rest (09/06/25 18:37) Sequential Compression Device (09/06/25 ) Amlodipine Tablet (Norvasc Tablet) (09/07/25 10:00) Folic Acid Tablet (09/07/25 10:00) Admit (09/06/25 19:51) Nitroglycerin Sublingual (Ntrostat Subli (09/06/25 20:00) Morphine Sulfate Injection (09/06/25 20:00) Stat Ekg For Chest Pain (09/06/25 19:51) Notify Md Of Changes From Base (09/06/25 19:51) Manager Adult For 24 Hours (09/06/25 19:51) Emergency Dysrhythmia Protocol (09/06/25 19:51) Rhythm Strips Once Every Shift (09/06/25 19:51) Oxygen By Nasal Cannula (09/06/25 19:51) Vital Signs Date Time Temp Pulse Resp B/P (MAP) Pulse Ox O2 Delivery O2 Flow Rate FiO2 09/06/25 19:00 86 14 131/90 (104) 94 09/06/25 17:23 85 12 123/91 (102) 96 09/06/25 15:36 91 09/06/25 15:17 97.8 87 20 130/90 (103) 97 97.8 09/06/25 15:17 100 Room Air* 0 21 09/06/25 14:39 98.3 81 18 110/63 96 98.3 09/06/25 14:27 84 Laboratory Tests Test 09/06/25 14:25 White Blood Count 4.9 10^3/uL (4.4-10.8) Medications Medications Dose Ordered Sig/Lewis Route Start Time Stop Time Status Last Admin Dose Admin Zirconium Oxide 10 gm ONCE ONCE PO 09/06/25 18:45 09/06/25 19:20 DC 09/06/25 19:25 10 GM Assessment/Plan Assessment/Plan Syncope and collapse Hyperkalemia Generalized weakness Acute on chronic renal failure Plan 1. Admit to telemetry unit 2. Breathing treatment 3. Pain control management 4. Management of fluids and electrolytes 5. Consultation for hospitalist 6. Diagnostic tests head CT 7. DVT prophylaxis-on Eliquis 8. Repeat labs CBC, CMP in a.m. 9. Continue with current medical management 10. Treatment plan discussed with patient and RN. Patient verbalized understanding. Plan discussed with: Patient, Other (RN) My Orders Orders - VILMA CLAROS DNP Procedure Category Date Status Time *[facility] CONS 09/06/25 Transmitted -[place] 18:37 Metoprolol Tartrate PHA 09/06/25 In Process Tablet (Lopressor Ta 22:00 Allergies ALAINA 09/06/25 In Process 18:37 Code Status CODE 09/06/25 Transmitted 18:37 Sodium Chloride Lock PHA 09/06/25 In Process (Saline Lock Ns) 22:00 Oxygen Per Hour RT 09/06/25 Transmitted 18:37 Hydrocodone-Acet PHA 09/06/25 In Process 5/325mg Tab ([place] 18:45 Ondansetron Hcl PHA 09/06/25 In Process (Zofran) 18:45 Docusate Sodium PHA 09/06/25 In Process Capsule (Colace 18:45 Fall Risk Precautions ALAINA 09/06/[address] 18:37 Complete Blood Count LAB 09/07/25 Verified 04:00 Comprehensive LAB 09/07/25 Verified Metabolic Panel 04:00 Cardiac DIET 09/07/25 Transmitted Diet-2gna,Lofat,Lochol Breakfast Condition: Serious ALAINA 09/06/25 In Process 18:37 Acetaminophen Tablet PHA 09/06/25 In Process (Tylenol Tablet) 18:45 Maintain Bed Rest ALAINA 09/06/25 In Process 18:37 Sequential ALAINA 09/06/25 In Process Compression Device Amlodipine Tablet PHA 09/07/25 In Process (Norvasc Tablet) 10:00 Folic Acid Tablet PHA 09/07/25 In Process 10:00 Admit ADMIT 09/06/25 Transmitted 19:[address] [facility] 09/06/25 Transmitted Sublingual (Ntrostat 20:00 Morphine Sulfate PHA 09/06/25 Transmitted Injection 20:00 Stat Ekg For Chest [facility] 09/06/25 Transmitted Pain 19:51 Notify Md Of Changes [facility] 09/06/25 Transmitted From Base 19:51 Manager Adult For [facility] 09/06/25 Transmitted 24 Hours 19:51 Emergency Dysrhythmia [facility] 09/06/25 Transmitted Protocol 19:51 Rhythm Strips Once [facility] 09/06/25 Transmitted Every Shift 19:51 Oxygen By Nasal RT 09/06/25 Transmitted Cannula 19:51 Problem List: (1) Syncope and collapse (2) Hyperkalemia (3) Generalized weakness (4) Acute on chronic renal failure Date of Service: Sep 06, 2025 Billing Provider: VILMA CLAROS DNP Common Visit Codes: [id number] INP/OBS CARE (HIGH) IVLMA CLAROS DNP Sep 06, 2025 19:52
[2025-09-06] MEDS ORDERED: NITROGLYCERIN 0.4 MG SL TAB SL PRN (20:00)
[2025-09-06] MEDS ORDERED: MORPHINE SULFATE INJ 2 MG/ml SYRG IV PRN (20:00)
[2025-09-06 21:26] LABS: Urine Protein, UAD Negative (Negative)
[2025-09-06] MEDS ORDERED: METOPROLOL TARTRATE 25 MG TAB PO SCH (22:00)
[2025-09-06] MEDS ORDERED: CARVEDILOL 12.5 MG TAB PO SCH (22:00)
[2025-09-06] MEDS ORDERED: APIXABAN 5 MG TAB PO SCH (22:00)
[2025-09-06] MEDS: SODIUM CHLOR 0.9% PF (SALINE LOCK) 10ML VIAL/SYR IV SCH (22:15)
[2025-09-06] MEDS: APIXABAN 5 MG TAB PO SCH (22:25)
[2025-09-06] MEDS: CARVEDILOL 12.5 MG TAB PO SCH (22:26)
[2025-09-06 22:59] VITALS: BP 137/88; PULSE 91; RESP 19; TEMP 98.9; O2SAT 95
[2025-09-06 23:00] VITALS: BP 137/88; PULSE 91; RESP 19; TEMP 98.9; O2SAT 95
[2025-09-06] MEDS ORDERED: ASPI325T6 PO (23:58)
[2025-09-06] MEDS ORDERED: CARV25TA55 PO (23:58)
[2025-09-06] MEDS ORDERED: SPIR50TA5 PO (23:58)
[2025-09-06] MEDS ORDERED: FURO40TA4 PO (23:58)
[2025-09-06] MEDS ORDERED: APIX5TAB PO (23:58)
[2025-09-06] MEDS ORDERED: ASPI-543 PO (23:58)
[2025-09-07] VITALS (8 sets, daily range): BP systolic 97–126; BP diastolic 72–90; PULSE 17–101; RESP 17–18; TEMP 97.3–98.3; O2SAT 96–100
--- NOTE | 2025-09-07 06:35 | ECG ---
[facility] Test Date: 2025-09-06 Test Time: 14:27:50 Pat Name: ERMELINDA LOPEZ Department: [facility] ED Patient ID: [id number] Room: 0233T Gender: M Client Success Manager: ced : 1955 Requested By: MARCI KIRBY Order Number: [id number] Reading MD: Hussein Wetzel Measurements Intervals [place] Rate: 84 P: 0 TX: 0 QRS: 155 QRSD: 148 T: -8 QT: 418 QTc: 495 Interpretive Statements Atrial fibrillation RBBB and LPFB Electronically Signed On 09-08-2025 10:58:04 PST by Hussein Wetzel Please click the below link to view image of tracing.
--- NOTE | 2025-09-07 06:35 | ECG ---
[facility] Test Date: 2025-09-06 Test Time: 15:36:26 Pat Name: ERMELINDA LOPEZ Department: [facility] ED Room: 0233T Gender: M Business Economist: ced : 1955 Requested By: MARCI KIRBY Order Number: [id number] Reading MD: Hussein Wetzel Measurements Intervals [place] Rate: 91 P: 0 MT: 0 QRS: 153 QRSD: 159 T: -7 QT: 442 QTc: 544 Interpretive Statements Atrial fibrillation RBBB and LPFB Electronically Signed On 09-08-2025 10:58:25 PST by Hussein Wetzel Please click the below link to view image of tracing.
[2025-09-07 07:21] LABS: Hematocrit 42.9 % (41.0-53.0); Hemoglobin 14.8 g/dL (13.5-17.5); Mean Corpuscular Hemoglobin 32.3 pg (28.0-32.0); Mean Corpuscular Volume 93.8 fL (80.0-100.0); Nucleated Red Blood Cells % 0.3 %
[2025-09-07 08:18] LABS: Alanine Aminotransferase 22 U/L (7-40); Albumin 4.1 g/dL (3.2-4.8); Alkaline Phosphatase 77 U/L (46-116); BUN/Creatinine Ratio 12.0 (10.0-20.0); Calcium 9.1 mg/dL (8.7-10.4); Carbon Dioxide 23 mmol/L (20-31); Glucose 101 mg/dL (74-106); Total Protein 7.3 g/dL (5.7-8.2)
[2025-09-07 08:19] LABS: Bilirubin, Total 1.0 mg/dL (0.2-1.0)
[2025-09-07 08:22] LABS: Blood Urea Nitrogen 29 mg/dL (9-23)
[2025-09-07 08:52] LABS: Anion Gap 12 (5-15); Chloride 108 mmol/L (98-107); Potassium 4.3 mmol/L (3.5-5.1); Sodium 143 mmol/L (136-145)
[2025-09-07] MEDS: FOLIC ACID 1 MG TAB PO SCH (09:49)
--- NOTE | 2025-09-07 10:53 | DVHINCON2 ---
Date of service: Sep 07, 2025 Referring Physician Silvio Driver NP Reason for Consultation Acute kidney injury History of Present Illness Patient is 69-year-old male with past medical history significant for hypertension, atrial fibrillation, Chronic Kidney Disease stage 4, gout and rheumatoid arthritis is admitted for evaluation of syncopal episode. On admission patient found to have elevated BUN creatinine nephrology is consulted for acute kidney injury Past Medical History Hypertension atrial fibrillation Rheumatoid arthritis Gout Chronic Kidney Disease stage 4 Past Surgical History Patient denies Allergies: Coded Allergies: Aliskiren (Verified Allergy, Unknown, 09/06/25) Amoxicillin (Verified Allergy, Unknown, 09/06/25) Hydralazine (Verified Allergy, Unknown, 09/06/25) Penicillins (Verified Allergy, Unknown, 09/06/25) Rosuvastatin (Verified Allergy, Unknown, 09/06/25) Home Meds Reported Medications Carvedilol (Carvedilol) 25 Mg Tab, 25 MG PO Q12HR, MG 09/06/25 Apixaban Base (ELIQUIS) 5 Mg Tab, 5 MG PO BID, TAB 09/06/25 Furosemide (Furosemide) 40 Mg Tab, 40 MG PO MWF, MG 09/06/25 Spironolactone (Spironolactone) 50 Mg Tab, 1 TAB PO DAILY, TAB 5 Refills 09/06/25 Aspirin (Aspir-Low) 81 Mg Tab, 81 MG PO DAILY, MG 09/06/25 Current Medications Current Medications Medications (Trade) Dose Ordered Sig/Lewis Route PRN Reason Start Time Stop Time Status Last Admin Metoprolol Tartrate (Lopressor Tablet) 25 mg BID PO 09/06/25 22:00 09/06/25 21:31 DC Amlodipine Besylate (Norvasc Tablet) 5 mg DAILY PO 09/07/25 10:00 09/07/25 11:31 DC Folic Acid 1 mg DAILY PO 09/07/25 10:00 09/07/25 09:49 Sodium Chloride (Saline Lock Ns) 10 ml Q8HR IV 09/06/25 22:00 09/07/25 05:12 Acetaminophen/ Hydrocodone Bitart ([place] 5/325MG Tab) 1 tab Q4HP PRN PO MODERATE PAIN (4-6 PAIN SCALE) 09/06/25 18:45 Ondansetron HCl (Zofran) 4 mg Q4HP PRN IV NAUSEA / VOMITING 09/06/25 18:45 Docusate Sodium (Colace Capsule) 100 mg BIDPRN PRN PO FOR CONSTIPATION 09/06/25 18:45 Acetaminophen (Tylenol Tablet) 650 mg Q6HP PRN PO PAIN SCALE 1-3 OR TEMP>100.4 09/06/25 18:45 Nitroglycerin (Ntrostat Sublingual) 0.4 mg Q5MINP PRN SL FOR CHEST PAIN 09/06/25 20:00 Morphine Sulfate 2 mg Q30M PRN IV FOR CHEST PAIN 09/06/25 20:00 Apixaban (Eliquis) 5 mg DAILY PO 09/06/25 22:00 09/06/25 20:57 DC Carvedilol (Coreg Tablet) 25 mg DAILY PO 09/06/25 22:00 09/06/25 20:57 DC Apixaban (Eliquis) 5 mg BID PO 09/06/25 22:00 09/07/25 11:31 DC 09/06/25 22:25 Carvedilol (Coreg Tablet) 25 mg BID PO 09/06/25 22:00 09/07/25 09:49 Family History: Bipolar disorder G8 BROTHER Diabetes mellitus in father G8 FATHER FH: colon cancer G8 MOTHER Osteoarthritis G8 MOTHER Review of Systems All 12 item review of systems reviewed with the patient nonsignificant except what is mentioned in the history of present illness H&P Exam Vital Signs/I&O Vital Sign Date Time Temp Pulse Resp B/P (MAP) Pulse Ox O2 Delivery O2 Flow Rate FiO2 09/07/25 09:49 78 123/89 09/07/25 08:18 Room Air* 0 21 09/07/25 05:00 97.6 17 97 97.6 Intake and Output 09/06/25 09/07/25 19:00 07:00 Intake Total 200 ml Balance 200 ml Intake Oral 200 ml # Voids 2 # Bowel Movements 5 Physical Exam Patient lying comfortably in bed appears in no acute distress Lungs clear auscultation bilaterally Cardiac exam regular rate and rhythm GI soft nontender was normal Extremities no clubbing cyanosis or edema Neuro nonfocal Labs/Diagnostic Data Labs/Diagnostic Data Laboratory Tests Test 09/07/25 06:35 09/06/25 21:08 09/06/25 15:48 09/06/25 14:25 Range/Units White Blood Count 4.3 L 4.9 4.4-10.8 10^3/uL Red Blood Count 4.57 4.62 4.5-5.90 10^6/uL Hemoglobin 14.8 14.8 13.5-17.5 g/dL Hematocrit 42.9 44.6 41.0-53.0 % Mean Corpuscular Volume 93.8 96.5 80.0-100.0 fL Mean Corpuscular Hemoglobin 32.3 H 32.0 28.0-32.0 pg Mean Corpuscular Hemoglobin Concent 34.4 33.2 32.0-36.0 g/dL Red Cell Distribution Width 13.7 13.8 11.8-14.3 % Platelet Count 114 L 124 L 140-450 10^3/uL Mean Platelet Volume 9.5 9.8 6.9-10.8 fL Neutrophils (%) (Auto) 61.9 61.5 37.0-80.0 % Lymphocytes (%) (Auto) 23.8 22.1 10.0-50.0 % Monocytes (%) (Auto) 11.2 12.9 H 0.0-12.0 % Eosinophils (%) (Auto) 2.2 2.3 0.0-7.0 % Basophils (%) (Auto) 0.9 1.2 0.0-2.0 % Neutrophils # (Auto) 2.7 3.0 1.6-8.6 10 ^3/uL Lymphocytes # (Auto) 1.0 1.1 0.4-5.4 10 ^3/uL Monocytes # (Auto) 0.5 0.6 0-1.3 10 ^3/uL Eosinophils # (Auto) 0.1 0.1 0-0.8 10 ^3/uL Basophils # (Auto) 0 0.1 0-0.2 10 ^3/uL Nucleated Red Blood Cells 0.3 0.1 % Sodium Level 143 144 136-145 mmol/L Potassium Level 4.3 5.1 3.5-5.1 mmol/L Chloride Level 108 H 113 H 98-107 mmol/L Carbon Dioxide Level 23 22 20-31 mmol/L Anion Gap 12 9 5-15 Blood Urea Nitrogen 29 #H 40 H 9-23 mg/dL Creatinine 2.42 H 2.47 H 0.700-1.30 mg/dL Glomerular Filtration Rate Calc 28 27 >90 mL/min BUN/Creatinine Ratio 12.0 16.2 10.0-20.0 Serum Glucose 101 85 74-106 mg/dL Calcium Level 9.1 8.9 8.7-10.4 mg/dL Phosphorus Level 3.3 2.4-5.1 mg/dL Magnesium Level 2.2 1.6-2.6 mg/dL Total Bilirubin 1.0 0.2-1.0 mg/dL Aspartate Amino Transferase (AST) 24 13-40 U/L Alanine Aminotransferase (ALT) 22 7-40 U/L Alkaline Phosphatase 77 46-116 U/L Total Protein 7.3 5.7-8.2 g/dL Albumin 4.1 3.2-4.8 g/dL Urine Color Light-yellow Yellow Urine Clarity Clear Clear Urine pH 6.0 5.0-9.0 Urine Specific [place] 1.010 1.001-1.035 Urine Protein Negative Negative Urine Ketones Negative Negative Urine Blood Negative Negative /uL Urine Nitrite Negative Negative Urine Bilirubin Negative Negative Urine Urobilinogen Normal Negative mg/dL Urine Leukocyte Esterase Negative Negative /uL Urine RBC <1 0 - 3 /hpf Urine Microscopic WBC 0-3 /HPF Urine Squamous Epithelial Cells Few <5 /hpf Urine Bacteria None seen None Seen /hpf Urine Glucose Normal Normal mg/dL Troponin I High Sensitivity < 3 L < 3 L </=54 ng/L B-Type Natriuretic Peptide 39.94 0-100 pg/mL Assessment Acute kidney injury superimposed Chronic Kidney Disease stage IV secondary hemodynamic mediated Syncope Atrial fibrillation Hypertension Rheumatoid arthritis History of gout Recommendations Closely monitor fluid and electrolytes Avoid nephrotoxic medications Strict I&Os Check urine electrolytes and protein excretion Check kidney ultrasound Cardiology consult Resume home medication We will continue to follow Patient seen and examined by myself. I discussed my plan of care with the patient, his and primary nurse at the bedside I would like to thank Silvio for the consult, will follow up Plan discussed with: Patient, Spouse ANNETTE HADDAD MD Sep 07, 2025 10:53
--- NOTE | 2025-09-07 11:28 | DVHPNRES ---
Progress Note Date Seen: Sep 07, 2025 Resident Creating Document: ERASMO FORBES RESIDENT Objective vital signs Vital Sign Date Time Temp Pulse Resp B/P (MAP) Pulse Ox O2 Delivery O2 Flow Rate FiO2 09/07/25 09:49 78 123/89 09/07/25 08:18 Room Air* 0 21 09/07/25 05:00 97.6 17 97 97.6 Total Intake and Output 09/06/25 09/06/25 09/07/25 15:00 23:00 07:00 Intake Total 200 ml Balance 200 ml medications Current Medications Medications Dose Ordered Sig/Lewis Route Start Time Stop Time Status Last Admin Dose Admin Amlodipine Besylate 5 mg DAILY PO 09/07/25 10:00 Folic Acid 1 mg DAILY PO 09/07/25 10:00 09/07/25 09:49 1 MG Sodium Chloride 10 ml Q8HR IV 09/06/25 22:00 09/07/25 05:12 10 ML Acetaminophen/ Hydrocodone Bitart 1 tab Q4HP PRN PO 09/06/25 18:45 Ondansetron HCl 4 mg Q4HP PRN IV 09/06/25 18:45 Docusate Sodium 100 mg BIDPRN PRN PO 09/06/25 18:45 Acetaminophen 650 mg Q6HP PRN PO 09/06/25 18:45 Nitroglycerin 0.4 mg Q5MINP PRN SL 09/06/25 20:00 Morphine Sulfate 2 mg Q30M PRN IV 09/06/25 20:00 Apixaban 5 mg BID PO 09/06/25 22:00 09/06/25 22:25 5 MG Carvedilol 25 mg BID PO 09/06/25 22:00 09/07/25 09:49 25 MG Examination: GENERAL:Normal, HEENT:Abnormal (dry mucosa ), NECK:Normal, LUNGS:Normal, ABDOMEN:Abnormal (left lower quadrant deep palpation tenderness. Bs+ve ), MSK:Normal, SKIN:Normal, NEURO:Normal laboratory and microbiology Laboratory Tests 09/07/25 06:35 Test 09/07/25 06:35 Range/Units Serum Glucose 101 74-106 mg/dL Labs and/or images reviewed: Labs reviewed by me, Image(s) reviewed by me Problem List/Assessment/Plan Problem List/Assessment/Plan Mr. Everett, a 69-year-old male with a history of hypertension and atrial fibrillation who presented to [facility] ED following a syncopal episode earlier 09/06. He reports months of persistent diarrhea accompanied by generalized weakness and worsening dizziness, which led to his visit. He has a scheduled colonoscopy with a gastroenterology group. In the ED, he was hemodynamically stable with normal vital signs and oxygen saturation. Labs revealed mild leukopenia, thrombocytopenia, elevated BUN and creatinine, and normal cardiac markers. Head CT showed mild cerebral volume loss and chronic microvascular ischemic changes without acute findings. He denied chest pain, headache, diaphoresis, shortness of breath, nausea, vomiting, fever, or chills. He was admitted for further evaluation and management. Plan: #Influenza B +ve: Hemodynamically stable, in room air, continue tamiflu x 5 days. #Mild thrombocytopenia: keep a close eye, no visible PTT, bleeding reported. Check INR/PTT/PTT #Intravascular dehydration, mild to moderate: chronic watery diarrhea, at presentation BUN 40, trending down 29, continue IV hydration. UTI ruled out #TESS on CKD, hemodynamically mediated due to VMN: Continue hydration, avoid nephrotoxic, check urine electrolytes, close monitoring avoid nephrotoxic, close I&O, nephrology on board appreciate input. #History of atrial fibrillation: continue telemetry, heart rate 110 or below as per RACE II trial at home Eliquis 5 mg b.i.d. on hold coreg to continue, denies chest pain or tachycardia. #Dizziness-presyncopal episode: Ruled out rhythm disorder, continue on telemetry, TSH, orthostatic vitals, intravascular fluid depletion, renal ultrasound, PT evaluation, CT head -ve. No focal neuromuscular weakness noted. #Known gout: patient on allopurinol 100 mg p.o. daily no acute gout palpitation noted, #Dyslipidemia: on home atorvastatin calcium 10 mg daily, likely will benefit from 40 mg daily moderate dose. #Surgical history of left complete knee arthroplasty in 2019, b/l hip arthroplasty #Essential HTN: Known hypertensive, patient on amlodipine 5 mg as well as on Coreg, well-controlled blood pressure, #Recurrent constipation: As needed docusate #Grade 1 obesity 33.8: weight loss counseling healthy diet counseling to continue #cardiomegaly: could be hypertensive heart disease, keep 140/90 or below. euvolemic, check Echo. #Allergic to aliskiren, amoxicillin, hydralazine penicillin and rosuvastatin avoid allergens #Gastroenteritis: likely due to infection vs secondary to medications. stool workup in progress. #Gluten-enteropathy: follows GI pending colonoscopy on 09/10, continue gluten free diet. PUD prophylaxis: protonix 40mg/not needed DVT prophylaxis: Levonox 40mg/brisk movement. Barriers to discharge: Medical diagnosis and management in progress. Patient lives with self / family. Independent/need supportive device/wheelchair/person support for ADL. PT and SW consult as needed. Lives at home. PCP: Gómez Rosado. Specialist Relevant To Admission: Nephrology, we will follow up outpatient for CKD management Case discussed with Dr. Bowles Code Status: Full Code/ DNR+DNI/ Modified Chemical Code. Discussion needed total 23 minutes bedside. Plan discussed with: Patient My Orders My Orders Orders - ERASMO FORBES Procedure Category Date Status Time Prothrombin Time W/ LAB 09/07/25 Logged INR 11:16 Orthostatic Vital ED NURSING 09/07/25 Transmitted Signs Communication Order ORDERS 09/07/25 Transmitted 11:16 Fall Precautions ALAINA 09/07/25 In Process Initiated 11:16 Echo 2d Mode Cardiac US 09/07/25 Logged DOP 11:16 Thyroid Stimulating LAB 09/07/25 Logged Hormone 11:16 Lactic Acid W/ Reflex LAB 09/07/25 Logged Order 11:16 Complete Blood Count LAB 09/08/25 Verified 04:00 Basic Metabolic Panel LAB 09/08/25 Verified 04:00 Covid19 Antigen [facility] LAB 09/07/25 Transmitted Rapid Influenza A&B LAB 09/07/25 Transmitted 11:23 Dietary Evaluation Review Comments: 1. follow the gluten free cardiac diet 2. followup with pending colonoscopy report 3. Wt management desirable Expected Outcomes/Goals: free from diarrhea, gradual wt loss. Date of Service: Sep 07, 2025 Billing Provider: MANJU BOWLES MD Common Visit Codes: [id number] INP/OBS CARE(HIGH) Secondary Visit Codes: [id number] CARE PLAN 30 MINUTES ERASMO FORBES Sep 07, 2025 11:28 MANJU BOWLES MD Sep 07, 2025 15:46
[2025-09-07 11:41] LABS: Magnesium 2.2 mg/dL (1.6-2.6)
--- NOTE | 2025-09-07 11:47 | DVH ---
INDICATION: willam TECHNIQUE: Multiple real-time sonographic images of the kidneys and bladder were obtained. COMPARISON: None FINDINGS: RIGHT kidney measures 9.14 cm in length. Small anechoic cortical lesion measuring 2.2 x 2.3 x 3.2 cm is consistent with a cyst. No hydronephrosis. LEFT kidney measures 14.46 cm in length. Small anechoic cortical lesion measuring 1.9 x 2 x 2.3 cm consistent with a cortical cyst No hydronephrosis. No large intraluminal masses are seen in the bladder. Bladder volume 147 ML. Bladder wall 1.4 mm. No postvoid volume images received IMPRESSION: 1. 9.14 cm long right kidney. 2. 14.46 cm long left kidney, 3. No hydronephrosis bilaterally. 4. No postvoid bladder volume given
[2025-09-07 12:31] LABS: Urine Protein, UAD Negative (Negative)
[2025-09-07 12:43] LABS: Protein, Urine 10.7 mg/dL (1-14)
[2025-09-07 14:00] LABS: INR 1.14 (0.9-1.15); Prothrombin Time 11.9 sec (9.3-11.8)
[2025-09-07 15:06] LABS: COVID19 ANTIGEN SOFIA FIA NEGATIVE (NEGATIVE)
[2025-09-07] MEDS: OSELTAMIVIR 30 MG CAP PO SCH (21:36)
[2025-09-08] VITALS (8 sets, daily range): BP systolic 91–130; BP diastolic 63–96; PULSE 17–86; RESP 17–20; TEMP 97.8–98.6; O2SAT 95–98
[2025-09-08 05:20] LABS: Hematocrit 43.0 % (41.0-53.0); Hemoglobin 14.5 g/dL (13.5-17.5); Mean Corpuscular Hemoglobin 31.6 pg (28.0-32.0); Mean Corpuscular Volume 94.0 fL (80.0-100.0); Nucleated Red Blood Cells % 0.1 %
[2025-09-08 05:30] LABS: Chloride 106 mmol/L (98-107); Potassium 4.3 mmol/L (3.5-5.1); Sodium 140 mmol/L (136-145)
[2025-09-08 05:31] LABS: Anion Gap 8 (5-15); Calcium 9.3 mg/dL (8.7-10.4); Carbon Dioxide 26 mmol/L (20-31)
[2025-09-08 05:36] LABS: BUN/Creatinine Ratio 12.9 (10.0-20.0); Glucose 100 mg/dL (74-106)
[2025-09-08 05:48] LABS: Blood Urea Nitrogen 29 mg/dL (9-23)
--- NOTE | 2025-09-08 11:05 | DVHPN2 ---
Progress Note Date Seen: Sep 08, 2025 Medical Necessity Reason Pt with a Central, PICC or Fol: No Subjective Patient reports: No new complaints Review of Systems: HEENT:Normal, CVS:Normal, RESPIRATORY:Normal, GI:Normal, :Normal, MSK:Normal, NEURO:Normal Objective vital signs Vital Sign Date Time Temp Pulse Resp B/P (MAP) Pulse Ox O2 Delivery O2 Flow Rate FiO2 09/08/25 10:46 81 115/75 09/08/25 08:41 97.8 20 98 97.8 09/07/25 20:00 Room Air* 0 21 Total Intake and Output 09/07/25 09/07/25 09/08/25 15:00 23:00 07:00 Intake Total 780 ml 1230 ml 1600 ml Output Total 100 ml Balance 780 ml 1130 ml 1600 ml medications Current Medications Medications Dose Ordered Sig/Lewis Route Start Time Stop Time Status Last Admin Dose Admin Folic Acid 1 mg DAILY PO 09/07/25 10:00 09/08/25 10:44 1 MG Sodium Chloride 10 ml Q8HR IV 09/06/25 22:00 09/08/25 05:24 10 ML Acetaminophen/ Hydrocodone Bitart 1 tab Q4HP PRN PO 09/06/25 18:45 Ondansetron HCl 4 mg Q4HP PRN IV 09/06/25 18:45 Docusate Sodium 100 mg BIDPRN PRN PO 09/06/25 18:45 Acetaminophen 650 mg Q6HP PRN PO 09/06/25 18:45 Nitroglycerin 0.4 mg Q5MINP PRN SL 09/06/25 20:00 Morphine Sulfate 2 mg Q30M PRN IV 09/06/25 20:00 Carvedilol 25 mg BID PO 09/06/25 22:00 09/08/25 10:46 25 MG Oseltamivir Phosphate 30 mg BID PO 09/07/25 22:00 09/12/25 21:59 09/08/25 10:44 30 MG Examination: GENERAL:Normal, HEENT:Normal, NECK:Normal, LUNGS:Normal, CVS:Normal, ABDOMEN:Normal, MSK:Normal, SKIN:Normal, NEURO:Normal, :Normal laboratory and microbiology Laboratory Tests 09/08/25 04:55 Test 09/08/25 04:55 Range/Units Serum Glucose 100 74-106 mg/dL Microbiology Date/Time Source Procedure Growth Status 09/07/25 02:33 Stool Clostridium difficile Toxin Assay - Final Complete Problem List/Assessment/Plan Problem List/Assessment/Plan #1 syncopy ?dehydration: ivf #2 diarrhea: gi eval #3 acute on chronic renal failure ?vasomotor nephropathy: ivf #4 RA #5 celiac disease #6 a fib: hold eliquis #7 obesity #8 thrombocytopenia: monitor advance care planning- full code- time spent 18mins Plan discussed with: Patient, Spouse My Orders My Orders Orders - CHRIS BAILEY MD Procedure Category Date Status Time NS PHA 09/08/25 Verified 11:00 * Gi Dvh [facility]allurg[facility] Laboratory Technician CONS 09/08/25 Verified 11:00 Basic Metabolic Panel LAB 09/09/25 Verified 06:00 Complete Blood Count LAB 09/09/25 Verified 06:00 Dietary Evaluation Review Comments: 1. follow the gluten free cardiac diet 2. followup with pending colonoscopy report 3. Wt management desirable Expected Outcomes/Goals: free from diarrhea, gradual wt loss. Date of Service: Sep 08, 2025 Billing Provider: CHRIS BAILEY MD Common Visit Codes: [id number] INP/OBS CARE(HIGH) Secondary Visit Codes: [id number] CARE PLAN 30 MINUTES CHRIS BAILEY MD Sep 08, 2025 11:05
[2025-09-08] MEDS: SODIUM CHLORIDE 0.9% 1,000 ML IV SCH (13:04)
[2025-09-08] MEDS ORDERED: LOPERAMIDE HCL 2 MG CAP/TAB PO PRN (16:30)
--- NOTE | 2025-09-08 17:07 | DVHPN2 ---
Progress Note Date Seen: Sep 08, 2025 Medical Necessity Reason Pt with a Central, PICC or Fol: No Subjective Patient reports: No new complaints, Other (diarrhoea) Objective vital signs Vital Sign Date Time Temp Pulse Resp B/P (MAP) Pulse Ox O2 Delivery O2 Flow Rate FiO2 09/08/25 16:41 98.2 67 18 130/95 (107) 96 98.2 09/08/25 08:00 Room Air* 0 21 Total Intake and Output 09/07/25 09/07/25 09/08/25 15:00 23:00 07:00 Intake Total 780 ml 1230 ml 1600 ml Output Total 100 ml Balance 780 ml 1130 ml 1600 ml medications Current Medications Medications Dose Ordered Sig/Lewis Route Start Time Stop Time Status Last Admin Dose Admin Folic Acid 1 mg DAILY PO 09/07/25 10:00 09/08/25 10:44 1 MG Sodium Chloride 10 ml Q8HR IV 09/06/25 22:00 09/08/25 05:24 10 ML Acetaminophen/ Hydrocodone Bitart 1 tab Q4HP PRN PO 09/06/25 18:45 Ondansetron HCl 4 mg Q4HP PRN IV 09/06/25 18:45 Docusate Sodium 100 mg BIDPRN PRN PO 09/06/25 18:45 Acetaminophen 650 mg Q6HP PRN PO 09/06/25 18:45 Nitroglycerin 0.4 mg Q5MINP PRN SL 09/06/25 20:00 Morphine Sulfate 2 mg Q30M PRN IV 09/06/25 20:00 Carvedilol 25 mg BID PO 09/06/25 22:00 09/08/25 10:46 25 MG Oseltamivir Phosphate 30 mg BID PO 09/07/25 22:00 09/12/25 21:59 09/08/25 10:44 30 MG Sodium Chloride 1,000 ml @ 75 mls/hr [id number] IV 09/08/25 11:00 09/08/25 13:04 75 MLS/HR Cholestyramine Resin 4 gm DAILY@11 GT 09/09/25 11:00 UNV Loperamide HCl 2 mg PRN PRN PO 09/08/25 16:30 UNV Saccharomyces Boulardii 250 mg DAILY PO 09/09/25 10:00 UNV Examination: GENERAL:Normal, HEENT:Normal, NECK:Normal, LUNGS:Normal, CVS:Normal, ABDOMEN:Normal, MSK:Normal, SKIN:Normal, NEURO:Normal, :Normal laboratory and microbiology Laboratory Tests 09/08/25 04:55 Test 09/08/25 04:55 Range/Units Serum Glucose 100 74-106 mg/dL Microbiology Date/Time Source Procedure Growth Status 09/07/25 13:11 Stool Stool Culture - Preliminary Resulted 09/07/25 13:11 Stool Shiga Toxin I & II - Final Resulted Problem List/Assessment/Plan Problem List/Assessment/Plan Acute kidney injury superimposed Chronic Kidney Disease stage 3B secondary hemodynamic mediated Syncope Atrial fibrillation Hypertension Rheumatoid arthritis History of gout Recommendations ns iv still c/o diarrhoea kidney us no hydro Plan discussed with: Patient, Spouse Dietary Evaluation Review Comments: 1. follow the gluten free cardiac diet 2. followup with pending colonoscopy report 3. Wt management desirable Expected Outcomes/Goals: free from diarrhea, gradual wt loss. KATT CHADWICK MD Sep 08, 2025 17:07
--- NOTE | 2025-09-08 17:20 | DVHCONRES ---
Date Seen: Sep 08, 2025 Resident Creating Document: JHAJJ,SARPUNEET RESIDENT Referring Physician Dr. Kaye Reason for Consultation Diarrhea History of Present Illness Patient is a 69-year-old male with a medical history of hypertension, atrial fibrillation, CKD stage 4, celiac disease presented to the hospital with the chief complaint of episode of syncope. Patient reportedly was straining for a b owel movement and after he got up from the toilet he felt dizzy and passed out following which EMS were called and patient was brought to the hospital for further evaluation. Patient reportedly had on and off diarrhea with the last 6 months mostly watery/loose without any blood in the stool. Past Medical History As per HPI Past Surgical History Denies Family History: Bipolar disorder G8 BROTHER Diabetes mellitus in father G8 FATHER FH: colon cancer G8 MOTHER Osteoarthritis G8 MOTHER Family History Noncontributory Social History Denies smoking, alcohol, drug use Allergies: Coded Allergies: Aliskiren (Verified Allergy, Unknown, 09/06/25) Amoxicillin (Verified Allergy, Unknown, 09/06/25) Hydralazine (Verified Allergy, Unknown, 09/06/25) Penicillins (Verified Allergy, Unknown, 09/06/25) Rosuvastatin (Verified Allergy, Unknown, 09/06/25) Home Meds Reported Medications Carvedilol (Carvedilol) 25 Mg Tab, 25 MG PO Q12HR, MG 09/06/25 Apixaban Base (ELIQUIS) 5 Mg Tab, 5 MG PO BID, TAB 09/06/25 Furosemide (Furosemide) 40 Mg Tab, 40 MG PO MWF, MG 09/06/25 Spironolactone (Spironolactone) 50 Mg Tab, 1 TAB PO DAILY, TAB 5 Refills 09/06/25 Aspirin (Aspir-Low) 81 Mg Tab, 81 MG PO DAILY, MG 09/06/25 Current Medications Current Medications Medications (Trade) Dose Ordered Sig/Lewis Route PRN Reason Start Time Stop Time Status Last Admin Oseltamivir Phosphate (Tamiflu 30MG Capsule) 30 mg BID PO 09/07/25 22:00 09/12/25 21:59 09/08/25 10:44 Sodium Chloride 1,000 ml @ 75 mls/hr [id number] IV 09/08/25 11:00 09/08/25 13:04 Cholestyramine Resin (Questran Powder) 4 gm DAILY@11 GT 09/09/25 11:00 UNV Loperamide HCl (Imodium Capsule) 2 mg PRN PRN PO FOR DIARRHEA 09/08/25 16:30 UNV Saccharomyces Boulardii (Florastor) 250 mg DAILY PO 09/09/25 10:00 UNV Review of Systems Patient seen and examined at bedside Reports abdominal pain has improved Continues to have loose/watery diarrhea Influenza B positive C diff negative Preliminary Stool cultures negative Vital Signs Vital Signs Date Time Temp Pulse Resp B/P (MAP) Pulse Ox O2 Delivery O2 Flow Rate FiO2 09/08/25 16:41 98.2 67 18 130/95 (107) 96 98.2 09/08/25 08:00 Room Air* 0 21 Physical Exam Gen - no pallor, no scleral icterus Skin - Patients skin is warm and dry. HEENT - normocephalic, atraumatic, dry mucous membranes. Neck - supple, no lymphadenopathy Pulmonary - B/L clear breath sounds cardiovascular - regular S1,S2 heard GI - soft nontender abdomen. Bowel sounds normoactive. Neurological - Patient is alert and oriented x4, following commands Labs/Diagnostic Data Labs Test 09/08/25 04:55 09/07/25 13:59 09/07/25 13:09 09/07/25 11:40 Range/Units White Blood Count 4.8 4.4-10.8 10^3/uL Red Blood Count 4.57 4.5-5.90 10^6/uL Hemoglobin 14.5 13.5-17.5 g/dL Hematocrit 43.0 41.0-53.0 % Mean Corpuscular Volume 94.0 80.0-100.0 fL Mean Corpuscular Hemoglobin 31.6 28.0-32.0 pg Mean Corpuscular Hemoglobin Concent 33.6 32.0-36.0 g/dL Red Cell Distribution Width 13.5 11.8-14.3 % Platelet Count 118 L 140-450 10^3/uL Mean Platelet Volume 9.9 6.9-10.8 fL Neutrophils (%) (Auto) 52.6 37.0-80.0 % Lymphocytes (%) (Auto) 30.4 10.0-50.0 % Monocytes (%) (Auto) 12.5 H 0.0-12.0 % Eosinophils (%) (Auto) 3.8 0.0-7.0 % Basophils (%) (Auto) 0.7 0.0-2.0 % Neutrophils # (Auto) 2.5 1.6-8.6 10 ^3/uL Lymphocytes # (Auto) 1.4 0.4-5.4 10 ^3/uL Monocytes # (Auto) 0.6 0-1.3 10 ^3/uL Eosinophils # (Auto) 0.2 0-0.8 10 ^3/uL Basophils # (Auto) 0 0-0.2 10 ^3/uL Nucleated Red Blood Cells 0.1 % Sodium Level 140 136-145 mmol/L Potassium Level 4.3 3.5-5.1 mmol/L Chloride Level 106 98-107 mmol/L Carbon Dioxide Level 26 20-31 mmol/L Anion Gap 8 5-15 Blood Urea Nitrogen 29 H 9-23 mg/dL Creatinine 2.25 H 0.700-1.30 mg/dL Glomerular Filtration Rate Calc 30 >90 mL/min BUN/Creatinine Ratio 12.9 10.0-20.0 Serum Glucose 100 74-106 mg/dL Calcium Level 9.3 8.7-10.4 mg/dL Influenza Type A Antigen Negative Negative Influenza Type B Antigen Positive Negative SARS-CoV-2 Antigen (Rapid) Negative NEGATIVE Prothrombin Time 11.9 H 9.3-11.8 sec Prothrombin Time INR 1.14 0.9-1.15 Lactic Acid Level 1.0 0.4-2.0 mmol/L Urine Color Light-yellow Yellow Urine Clarity Clear Clear Urine pH 6.0 5.0-9.0 Urine Specific [place] 1.018 1.001-1.035 Urine Protein Negative Negative Urine Ketones Negative Negative Urine Blood Negative Negative /uL Urine Nitrite Negative Negative Urine Bilirubin Negative Negative Urine Urobilinogen Normal Negative mg/dL Urine Leukocyte Esterase Negative Negative /uL Urine RBC <1 0 - 3 /hpf Urine Microscopic WBC 1 0-3 /HPF Urine Squamous Epithelial Cells None seen <5 /hpf Urine Bacteria None seen None Seen /hpf Urine Hyaline Casts Few 0 - 2 /lpf Urine Creatinine 189.28 H 30.0-125.0 mg/dL Urine Protein/Creatinine Ratio 0.06 Urine Sodium 48 40-220 mmol/L Urine Glucose Normal Normal mg/dL Urine Total Protein 10.7 1-14 mg/dL Test 11/9/25 06:35 09/06/25 15:48 09/06/25 14:25 Range/Units Phosphorus Level 3.3 2.4-5.1 mg/dL Magnesium Level 2.2 1.6-2.6 mg/dL Total Bilirubin 1.0 0.2-1.0 mg/dL Aspartate Amino Transferase (AST) 24 13-40 U/L Alanine Aminotransferase (ALT) 22 7-40 U/L Alkaline Phosphatase 77 46-116 U/L Total Protein 7.3 5.7-8.2 g/dL Albumin 4.1 3.2-4.8 g/dL Vitamin D 25-Hydroxy 41.5 30.0-100 ng/mL Thyroid Stimulating Hormone (TSH) 1.87 0.55-4.78 uIU/mL Parathyroid Hormone (Intact) 100.4 H 18.4-80.1 pg/mL Troponin I High Sensitivity < 3 L </=54 ng/L B-Type Natriuretic Peptide 39.94 0-100 pg/mL Microbiology Date/Time Source Procedure Growth Status 09/07/25 13:11 Stool Stool Culture - Preliminary Resulted 09/07/25 13:11 Stool Shiga Toxin I & II - Final Resulted Assessment intractable diarrhea Celiac disease Influenza B positive TESS on CKD likely hemodynamically mediated Plan - IV fluids as needed - C diff, preliminary stool cultures negative, diarrhea likely from celiac and possibly exacerbated by influenza B - we started patient on cholestyramine and Imodium as needed - gluten free diet - scheduled for outpatient colonoscopy on Monday, we will reassess the patient tomorrow and if continues to be hospitalized he will benefit from colonoscopy which will be scheduled for Monday Plan discussed with Dr. Elkins Plan discussed with: Patient, Other (RN) MARTIN SHAH RESIDENT Sep 08, 2025 17:20
[2025-09-09 01:00] VITALS: BP 122/89; PULSE 75; RESP 20; TEMP 98.1; O2SAT 96
[2025-09-09 05:00] VITALS: BP 116/83; PULSE 70; RESP 19; TEMP 98.4; O2SAT 98
[2025-09-09 05:01] LABS: Hematocrit 41.7 % (41.0-53.0); Hemoglobin 13.9 g/dL (13.5-17.5); Mean Corpuscular Hemoglobin 31.7 pg (28.0-32.0); Mean Corpuscular Volume 94.9 fL (80.0-100.0); Nucleated Red Blood Cells % 0.5 %
[2025-09-09 05:17] LABS: Anion Gap 9 (5-15); Calcium 8.7 mg/dL (8.7-10.4); Carbon Dioxide 24 mmol/L (20-31); Potassium 4.3 mmol/L (3.5-5.1); Sodium 141 mmol/L (136-145)
[2025-09-09 05:22] LABS: Chloride 108 mmol/L (98-107); Glucose 94 mg/dL (74-106)
[2025-09-09 05:23] LABS: BUN/Creatinine Ratio 17.2 (10.0-20.0)
[2025-09-09 05:24] LABS: Blood Urea Nitrogen 34 mg/dL (9-23)
[2025-09-09 08:05] VITALS: PULSE 73
[2025-09-09 09:00] VITALS: BP 130/88; PULSE 74; RESP 18; TEMP 97.7; O2SAT 97
--- NOTE | 2025-09-09 10:26 | DVHDS2 ---
Discharge Summary Date of Admission Sep 06, 2025 at 19:51 Date of Discharge: Sep 09, 2025 Labs/Diagnostic Data: Laboratory Results Test 09/09/25 04:36 09/09/25 04:00 09/07/25 13:59 09/07/25 13:09 White Blood Count 5.6 10^3/uL (4.4-10.8) Red Blood Count 4.39 10^6/uL (4.5-5.90) Hemoglobin 13.9 g/dL (13.5-17.5) Hematocrit 41.7 % (41.0-53.0) Mean Corpuscular Volume 94.9 fL (80.0-100.0) Mean Corpuscular Hemoglobin 31.7 pg (28.0-32.0) Mean Corpuscular Hemoglobin Concent 33.4 g/dL (32.0-36.0) Red Cell Distribution Width 13.2 % (11.8-14.3) Platelet Count 110 10^3/uL (140-450) Mean Platelet Volume 9.4 fL (6.9-10.8) Neutrophils (%) (Auto) 57.2 % (37.0-80.0) Lymphocytes (%) (Auto) 27.3 % (10.0-50.0) Monocytes (%) (Auto) 11.2 % (0.0-12.0) Eosinophils (%) (Auto) 3.6 % (0.0-7.0) Basophils (%) (Auto) 0.7 % (0.0-2.0) Neutrophils # (Auto) 3.2 10 ^3/uL (1.6-8.6) Lymphocytes # (Auto) 1.5 10 ^3/uL (0.4-5.4) Monocytes # (Auto) 0.6 10 ^3/uL (0-1.3) Eosinophils # (Auto) 0.2 10 ^3/uL (0-0.8) Basophils # (Auto) 0 10 ^3/uL (0-0.2) Nucleated Red Blood Cells 0.5 % Sodium Level 141 mmol/L (136-145) Potassium Level 4.3 mmol/L (3.5-5.1) Chloride Level 108 mmol/L (98-107) Carbon Dioxide Level 24 mmol/L (20-31) Anion Gap 9 (5-15) Blood Urea Nitrogen 34 mg/dL (9-23) Creatinine 1.98 mg/dL (0.700-1.30) Glomerular Filtration Rate Calc 35 mL/min (>90) BUN/Creatinine Ratio 17.2 (10.0-20.0) Serum Glucose 94 mg/dL (74-106) Calcium Level 8.7 mg/dL (8.7-10.4) Stool Occult Blood Negative (Negative) Stool Occult Blood Sample #2 (Negative) Stool Occult Blood Sample #3 (Negative) Stool for White Cells None seen Influenza Type A Antigen Negative (Negative) Influenza Type B Antigen Positive (Negative) SARS-CoV-2 Antigen (Rapid) Negative (NEGATIVE) Prothrombin Time 11.9 sec (9.3-11.8) Prothrombin Time INR 1.14 (0.9-1.15) Lactic Acid Level 1.0 mmol/L (0.4-2.0) Test 09/07/25 11:40 09/07/25 06:35 09/06/25 15:48 09/06/25 14:25 Urine Color Light-yellow (Yellow) Urine Clarity Clear (Clear) Urine pH 6.0 (5.0-9.0) Urine Specific [place] 1.018 (1.001-1.035) Urine Protein Negative (Negative) Urine Ketones Negative (Negative) Urine Blood Negative /uL (Negative) Urine Nitrite Negative (Negative) Urine Bilirubin Negative (Negative) Urine Urobilinogen Normal mg/dL (Negative) Urine Leukocyte Esterase Negative /uL (Negative) Urine RBC <1 /hpf (0 - 3) Urine Microscopic WBC 1 /HPF (0-3) Urine Squamous Epithelial Cells None seen /hpf (<5) Urine Bacteria None seen /hpf (None Seen) Urine Hyaline Casts Few /lpf (0 - 2) Urine Creatinine 189.28 mg/dL (30.0-125.0) Urine Protein/Creatinine Ratio 0.06 Urine Sodium 48 mmol/L (40-220) Urine Glucose Normal mg/dL (Normal) Urine Total Protein 10.7 mg/dL (1-14) Phosphorus Level 3.3 mg/dL (2.4-5.1) Magnesium Level 2.2 mg/dL (1.6-2.6) Total Bilirubin 1.0 mg/dL (0.2-1.0) Aspartate Amino Transferase (AST) 24 U/L (13-40) Alanine Aminotransferase (ALT) 22 U/L (7-40) Alkaline Phosphatase 77 U/L (46-116) Total Protein 7.3 g/dL (5.7-8.2) Albumin 4.1 g/dL (3.2-4.8) Vitamin D 25-Hydroxy 41.5 ng/mL (30.0-100) Thyroid Stimulating Hormone (TSH) 1.87 uIU/mL (0.55-4.78) Parathyroid Hormone (Intact) 100.4 pg/mL (18.4-80.1) Troponin I High Sensitivity < 3 ng/L (</=54) B-Type Natriuretic Peptide 39.94 pg/mL (0-100) Other Laboratory Tests 09/09/25 04:36 Brief Hx & Hospital Course: see dictated note Condition at Discharge: Fair Final Diagnosis/Problems List syncopy Discharge Disposition: Home Discharge Instruct/Medications Diet: Cardiac 2g Na,low cholest Activity: No Restrictions, As Tolerated Follow Up/Referral: fu with pcp/gi Medications: resume home meds script to pharmacy Scheduled Apixaban Base (Eliquis), 5 MG PO BID, (Reported) Aspirin (Aspir-Low), 81 MG PO DAILY, (Reported) Carvedilol (Carvedilol), 25 MG PO Q12HR, (Reported) Furosemide (Furosemide), 40 MG PO MWF, (Reported) Spironolactone (Spironolactone), 1 TAB PO DAILY, (Reported) Discharge Statement: "Patient was advised to return to the ER or call 911 if any headaches, dizziness, shortness of breath, chest pain, abdominal pain, bleeding, fevers, or worsening of medical condition. Patient was counseled about treatment plan, medications, possible side effects, patientverbalized understanding. All questions were answered to the best of my ability. This discharge took greater then 30 minutes in planning, reviewing documentation, counseling the patient, and discussing with other team members." ASSESSMENT ASSESSMENT Assessment syncopy Date of Service: Sep 09, 2025 Billing Provider: CHRIS BAILEY MD Common Visit Codes: 26103-RKD/OBS DISCH DAY >30min CHRIS BAILEY MD Sep 09, 2025 10:25
[2025-09-09] MEDS ORDERED: TAMIF30 PO (10:27)
[2025-09-09] MEDS ORDERED: CHOL4POW39 PO (10:27)
--- NOTE | 2025-09-09 10:39 | DVHDS ---
DATE OF DISCHARGE: 09/09/2025 DATE OF ADMISSION: 09/06/2025 DATE OF DISCHARGE: 09/09/2025 HISTORY OF PRESENT ILLNESS: The patient is a 69-year-old gentleman who was admitted with history of dizziness, diarrhea, and syncope. The patient has history of hypertension, atrial fibrillation, and chronic diarrhea. HOSPITAL COURSE: The patient was positive for influenza B. The patient's stool was negative for occult blood. The patient's creatinine was elevated to 2.4 that improved to 1.98 at the time of discharge. The patient had a CT of the head that showed no acute abnormality. The patient had a renal ultrasound that showed no hydronephrosis bilaterally. The patient's C. diff was negative and stool for shiga toxin was negative. The patient now wishes to be discharged home. He will be discharged to resume his home medications, except change in Coreg dose as per his PCP. He will also be placed on Tamiflu 30 mg b.i.d. for 4 days and cholestyramine 4 grams p.o. daily. 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 FINAL DIAGNOSES: Therefore: * Syncope, questionably secondary to dehydration. * Diarrhea, which is chronic. * Acute on chronic renal failure, questionable vasomotor nephropathy. * Influenza B. * Rheumatoid arthritis. * Celiac disease. * Atrial fibrillation. * Obesity. * Thrombocytopenia. Time spent in discharge planning and review of plan with the patient and nursing was 38 minutes. MD YUAN Sandoval/DL TID: [id number] RECEIPT: [id number]
[2025-09-09] MEDS: CHOLESTYRAMINE 4 GM POWDER GT SCH (11:00)
[2025-09-09] MEDS: FLORASTOR (S. BOULARDII) 250 MG CAP PO SCH (11:53)
[2025-09-09 13:02] VITALS: BP 110/77; PULSE 75; RESP 18; TEMP 96.4; O2SAT 99
--- NOTE | 2025-09-09 14:47 | DVHPN2 ---
Progress Note Date Seen: Sep 09, 2025 Medical Necessity Reason Pt with a Central, PICC or Fol: No Subjective Patient reports: No new complaints, Feels better Review of Systems: HEENT:Normal, CVS:Normal, RESPIRATORY:Normal, GI:Normal, :Normal, MSK:Normal, NEURO:Normal Objective vital signs Vital Sign Date Time Temp Pulse Resp B/P (MAP) Pulse Ox O2 Delivery O2 Flow Rate FiO2 09/09/25 13:02 96.4 75 18 110/77 (88) 99 96.4 09/08/25 20:00 Room Air* 0 21 Total Intake and Output 09/08/25 09/08/25 09/09/25 15:00 23:00 07:00 Intake Total 1370 ml 1475 ml Output Total 1525 ml Balance 1370 ml -50 ml medications Current Medications Medications Dose Ordered Sig/Lewis Route Start Time Stop Time Status Last Admin Dose Admin Folic Acid 1 mg DAILY PO 09/07/25 10:00 09/09/25 11:53 1 MG Sodium Chloride 10 ml Q8HR IV 09/06/25 22:00 09/09/25 06:05 10 ML Acetaminophen/ Hydrocodone Bitart 1 tab Q4HP PRN PO 09/06/25 18:45 Ondansetron HCl 4 mg Q4HP PRN IV 09/06/25 18:45 Docusate Sodium 100 mg BIDPRN PRN PO 09/06/25 18:45 Acetaminophen 650 mg Q6HP PRN PO 09/06/25 18:45 Nitroglycerin 0.4 mg Q5MINP PRN SL 09/06/25 20:00 Morphine Sulfate 2 mg Q30M PRN IV 09/06/25 20:00 Carvedilol 25 mg BID PO 09/06/25 22:00 09/09/25 11:54 25 MG Oseltamivir Phosphate 30 mg BID PO 09/07/25 22:00 09/12/25 21:59 09/09/25 11:54 30 MG Sodium Chloride 1,000 ml @ 75 mls/hr [id number] IV 09/08/25 11:00 09/09/25 00:20 75 MLS/HR Cholestyramine Resin 4 gm DAILY@11 GT 09/09/25 11:00 Loperamide HCl 2 mg PRN PRN PO 09/08/25 16:30 Saccharomyces Boulardii 250 mg DAILY PO 09/09/25 10:00 09/09/25 11:53 250 MG Examination: GENERAL:Normal, HEENT:Normal, NECK:Normal, LUNGS:Normal, CVS:Normal, ABDOMEN:Normal, MSK:Normal, SKIN:Normal, NEURO:Normal, :Normal laboratory and microbiology Laboratory Tests 09/09/25 04:36 Test 09/09/25 04:36 Range/Units Serum Glucose 94 74-106 mg/dL Microbiology Date/Time Source Procedure Growth Status 09/07/25 13:11 Stool Stool Culture - Preliminary Resulted 09/07/25 13:11 Stool Shiga Toxin I & II - Final Resulted Problem List/Assessment/Plan Problem List/Assessment/Plan Acute kidney injury superimposed Chronic Kidney Disease stage 3B secondary hemodynamic mediated Syncope Atrial fibrillation Hypertension Rheumatoid arthritis History of gout Recommendations ns iv still c/o diarrhoea kidney us no hydro Plan discussed with: Patient Dietary Evaluation Review Comments: 1. follow the gluten free cardiac diet 2. followup with pending colonoscopy report 3. Wt management desirable Expected Outcomes/Goals: free from diarrhea, gradual wt loss. KATT CHADWICK MD Sep 09, 2025 14:47
[2025-09-09 15:01] VITALS: BP 130/88; PULSE 74; TEMP 35.8
--- NOTE | 2025-09-09 18:07 | DVHPN2 ---
Progress Note - Dictate Date Seen: Sep 09, 2025 (Late entryPatient seen at 3:00 p.m.) Medical Necessity Reason Pt with a Central, PICC or Fol: No Subjective No new complaints, patient is out of bed to chair Patient was positive for influenza B Patient's diarrhea improved with oral cholestyramine and only had one bowel movement today vital signs Vital Sign Date Time Temp Pulse Resp B/P (MAP) Pulse Ox O2 Delivery O2 Flow Rate FiO2 09/09/25 15:01 35.8 74 09/09/25 13:02 18 110/77 (88) 99 09/09/25 08:05 Room Air* 0 21 Total Intake and Output 09/08/25 09/08/25 09/09/25 15:00 23:00 07:00 Intake Total 1370 ml 1475 ml Output Total 1525 ml Balance 1370 ml -50 ml objective Gen - no pallor, no scleral icterus Skin - Patients skin is warm and dry. HEENT - normocephalic, atraumatic, dry mucous membranes. Neck - supple, no lymphadenopathy Pulmonary - B/L clear breath sounds cardiovascular - regular S1,S2 heard GI - soft nontender abdomen. Bowel sounds normoactive. Neurological - Patient is alert and oriented x4, following commands laboratory and microbiology Laboratory Tests 09/09/25 04:36 Test 09/09/25 04:36 Range/Units Serum Glucose 94 74-106 mg/dL Problems(with codes): (1) Chronic diarrhea (2) Acute on chronic renal failure (3) Syncope and collapse (4) Generalized weakness Prognosis Plan Discharge planning is in progress Continue Questran 4 g packet p.o. daily Imodium 2 mg p.o. q.6 hours as needed for diarrhea Patient was advised to cancel his colonoscopy tomorrow until he has recovered from influenza B Outpatient follow up with me in 2-4 weeks or with gastro group for ongoing GI management Patient stated apparently he had an incomplete colonoscopy a few weeks ago and was rescheduled for a 2nd one tomorrow Dietary Evaluation Review Comments: 1. follow the gluten free cardiac diet 2. followup with pending colonoscopy report 3. Wt management desirable Expected Outcomes/Goals: free from diarrhea, gradual wt loss. Plan discussed with: Patient, Other (Dr Bookerajj) MEGHANA STRICKLAND MD Sep 09, 2025 18:07
== END 2025-09-09 15:53 | disposition home or self-care (01) | DRG 640 ==
LOC: EDUNIT# 14:14 → ER 14:14 → EDBD 14:14 → OVERFLOW 19:51 → TELE-EAST 22:54
PROVIDERS: ADMIT Internal Medicine; ATTEND Internal Medicine
DX: E86.0 Dehydration (principal); N17.0 Acute kidney failure with tubular necrosis; K52.9 Noninfective gastroenteritis and colitis, unspecified; N18.4 Chronic kidney disease, stage 4 (severe); D69.6 Thrombocytopenia, unspecified; E66.9 Obesity, unspecified; I48.91 Unspecified atrial fibrillation; E78.5 Hyperlipidemia, unspecified; J10.1 Influenza due to other identified influenza virus with other respiratory manifestations; M06.9 Rheumatoid arthritis, unspecified; I12.9 Hypertensive chronic kidney disease with stage 1 through stage 4 chronic kidney disease, or unspecified chronic kidney disease; Z20.822 Contact with and (suspected) exposure to COVID-19; E87.5 Hyperkalemia; K90.0 Celiac disease; M10.9 Gout, unspecified; K63.9 Disease of intestine, unspecified; Z88.0 Allergy status to penicillin; Z88.8 Allergy status to other drugs, medicaments and biological substances; Z83.3 Family history of diabetes mellitus; Z68.33 Body mass index [BMI] 33.0-33.9, adult; Z81.8 Family history of other mental and behavioral disorders; Z80.0 Family history of malignant neoplasm of digestive organs
CPT/HCPCS: 36415; 70450; 71045; 76775; 80048; 80053; 81001; 82270; 82306; 82570; 83605; 83735; 83880; 83970; 84100; 84156; 84300; 84443; 84484; 85025; 85048; 85610; 87045; 87426; 87427; 87493; 87804; 93005; 93306; 99291; G0378; G9035